=== PATIENT | male | born 2000 | race Caucasian/White ===

== ENCOUNTER 2025-04-19 12:00 | Emergency (ER) | payer MEDICAID, SELFPAY ==
--- NOTE | 2025-04-19 12:06 | ED_ITS ---
HPI - Skin/Abscess/Foreign Bdy General Chief complaint: Skin/Abscess/Foreign Body Stated complaint: painful pimple Time Seen by Provider: 04/19/25 15:03 Source: patient Mode of arrival: ambulatory Limitations: no limitations History of Present Illness ED Provider: DAVID LAYTON PA-C HPI narrative: 24 year old healthy male presents to the ED today for evaluation of pimple to right glute x3-4 days. Admits to popping the area with subsequent drainage. Pain is currently 7/10 however when applying direct pressure to the area, pain increases to 14/10. Trialing Motrin, hot showers, and a pain cream which temporarily relieve his discomfort. Denies fever, chills, N/V. Denies hx DM, IVDU. Related Data Previous Rx's ?Medication ?Instructions ?Recorded cephalexin 500 mg capsule 500 mg PO QID 7 days #28 cap s 04/19/25 doxycycline hyclate 100 mg capsule 100 mg PO BID 7 day s #14 caps 04/19/25 oxycodone 5 mg tablet 5 mg PO Q8H PRN pain (scale score 04/19/25 7-10) 3 days #9 tabs Allergies Allergy/AdvReac Type Severity Reaction Status Date / Time No Known Allergies Allergy Verified 04/19/25 12:22 Review of Systems 2 Review of Systems: Constitutional: No fever, chills, fatigue, night sweats, weight changes ENT/Mouth: No ear pain, hearing loss, nasal congestion, sinus pain, rhinorrhea, sore throat Eyes: No eye pain, swelling, redness, vision changes, discharge Cardio: No chest pain, palpitations, CELESTIN, orthopnea, peripheral edema Pulm: No SOB, cough, sputum, wheezing, dyspnea, hemoptysis GI: No nausea, vomiting, hematemesis, abdominal pain, diarrhea, constipation, hematochezia, melena : No irregular bleeding, dysuria, frequency, urgency, hesitancy, hematuria, flank pain, urinary flow changes, urinary incontinence or retention MSK: No back pain, neck pain, joint pain, myalgias Skin: No lesions, rashes, +abscess Neuro: No weakness, numbness, paresthesias, LOC, dizziness, headache Psych: No anxiety/panic, depression, SI/HI, AH/VH All other systems reviewed and are negative. [facility] Past Medical History Attestation statement: The following information was validated with the patient. Source: old records reviewed and nursing notes reviewed Social History Social History Unable to assess alcohol history related to: Unknown Use of substances other than those prescribed or required for medical reasons: Unknown Advance Directives: No Advance Directives Information Provided: Yes Do you have a plan to hurt others: No Plan Physical Exam 2 Vital Signs: Vital Signs: Last Vital Signs Temp 98.0 F 04/19/25 18:15 Pulse 63 04/19/25 18:15 Resp 18 04/19/25 18:15 BP 117/73 04/19/25 18:15 Pulse Ox 98 04/19/25 18:15 O2 Del Method Room Air 04/19/25 18:15 BMI result Body Mass Index 29.1 vitals stable, afebrile General: Well appearing, in no acute distress. Skin: Warm, dry, intact. No rashes or lesions. Head: Normocephalic, atraumatic. EENT: Hearing is intact b/l. Conjunctiva clear. Sclera is anicteric. PERRLA. EOM intact. Moist mucous membranes.? Neck: Supple without LAD Cardiac: Chest wall symmetric. RRR Lungs: Normal respiratory effort without accessory muscle use. CTA bilaterally. Abdomen: Soft, non-tender, non-distended. No rebound tenderness or guarding. Positive BS x4. Back: No midline spinous or paraspinal tenderness. No step off deformity. Ext: see below Neuro: AOx3. Normal speech. Ambulating with steady gait. Psych: Appropriate mood and affect. Responds appropriately to questions. Back/Spine/Pelvis: Back/spine/pelvis image: 1. right buttock with 5x4cm area of erythema and induration with central pointing and fluctuance, warm. Course Course Course Narrative: This is an RME: Additional HPI, ROS, PE not included below will be deferred to primary provider. RME assessment and note performed by: Delma Deluca PA-C 24 yo M here for 4 days of pimple on R glute. Patient states it drained and scabbed at some point. Reports pain in the area, cannot lay on back. Took Ibuprofen this morning with good effect. PE: area not visualized in triage due to privacy concerns. Plan: labs Reevaluation(s) Reevaluation #1: CBC without leukocytosis. no left shift. h&h stable. chemistry without acute electrolyte abnormality requiring intervention. no renita. liver function wnl. patient pre-medicated with toradol & ativan. I&D performed. see procedure note. patient tolerated well. culture swab sent. packing placed and wound dressed. advised to return to the ED 2-3 days for wound check. keflex + doxy sent to pharmacy. Patient has remained stable throughout ED visit today. Discussed worrisome signs and symptoms and when to return to the ED. All questions answered at this time. Patient is agreeable with disposition and stable for discharge. his girlfriend will be driving him home today. Medications Administered Discontinued Medications Generic Name Dose Route Start Last Admin Trade Name Freq PRN Reason Stop Dose Admin Ketorolac Tromethamine 30 mg 04/19/25 15:40 04/19/25 15:48 Ketorolac Tromethamine 30 Mg/Ml Vial IM 04/19/25 15:41 30 mg ONCE ONE Administration Lidocaine HCl 5 ml 04/19/25 15:35 04/19/25 15:48 Lidocaine Hcl 1 % Mpf 5 Ml Vial INFILTRATI 04/19/25 15:36 5 ml ONCE ONE Administration Lidocaine HCl 5 ml 04/19/25 15:37 04/19/25 15:48 Lidocaine Hcl 1 % Mpf 5 Ml Vial INFILTRATI 04/19/25 15:38 5 ml ONCE ONE Administration Lorazepam 0.5 mg 04/19/25 15:37 04/19/25 15:48 Lorazepam 0.5 Mg Tablet PO 04/19/25 15:38 0.5 mg ONCE ONE Administration Medical Decision Making Medical Decision Making [facility] Narrative: 24 year old healthy male presents to the ED today for evaluation of pimple to right glute x3-4 days. vital signs stable, afebrile. he is well appearing, in nad. on exam, right buttock with 5x4cm area of erythema and induration with central pointing and fluctuance, warm. Concern for cellulitis, abscess, folliculitis. unlikely hemtoma. Basic labs ordered from triage - will review. Plan for pain management + I&D. Differential Diagnosis Differential Diagnoses: The differential diagnosis associated with the presentation includes as above. Admission/Observation not indicated. Lab Data [facility] Lab Attestation statement: I reviewed the patient's lab results. as above. 04/19/25 12:54 04/19/25 12:54 Labs: Lab Results 04/19/25 Range/Units 12:54 WBC 8.4 (4.8-10.8) X10*3/uL RBC 4.82 (4.60-5.80) X10*6/uL Hgb 14.4 (14.0-18.0) g/dl Hct 40.2 L (42.0-52.0) % MCV 83.4 (80.0-98.0) fL MCH 29.9 (27.0-33.0) pg MCHC 35.8 (31.0-36.0) g/dl RDW 11.3 (11.0-16.0) % Plt Count 318 (160-400) X10*3/uL MPV 9.3 L (9.4-12.4) fL Immature Gran % (Auto) 0.2 (0.0-0.4) % Neut % (Auto) 72.9 (45-73) % Lymph % (Auto) 17.8 L (20-40) % Isabela % (Auto) 7.4 (2-11) % Eos % (Auto) 1.2 (0-4) % Baso % (Auto) 0.5 (0-2) % Lymph # (Auto) 1.5 (1.2-4.9) X10*3/uL Isabela # (Auto) 0.6 (0.1-1.2) X10*3/uL Eos # (Auto) 0.1 (0.0-0.4) X10*3/uL Baso # (Auto) 0.0 (0.0-0.2) X10*3/uL Abs Immat Gran (auto) 0.02 (0.00-0.03) X10*3/uL Absolute Neuts (auto) 6.1 (2.0-8.3) x10*3/uL Absolute Nucleated RBC 0.000 (0.0-0.012) X10*3/uL Nucleated RBC % (auto) 0.0 (0.0-0.2) /100WBC Sodium 141 (135-145) mmol/L Potassium 3.7 (3.3-5.1) mmol/L Chloride 107 (96-108) mmol/L Carbon Dioxide 27 (22-29) mmol/L Anion Gap 11 L (12-20) BUN 10 (9-16) mg/dL Creatinine 1.04 (0.5-1.4) mg/dL Estim Creat Clear Calc 99.0 Estimated GFR > 60 Random Glucose 88 (60-115) mg/dL Calcium 9.4 (8.4-10.2) mg/dL Total Bilirubin 0.5 (0.0-1.0) mg/dL AST 22 (5-37) U/L ALT 17 (0-40) U/L Alkaline Phosphatase 86 (39-117) U/L Total Protein 7.5 (6.5-8.0) g/dL Albumin 4.4 (3.5-5.0) g/dL Prescription Management I considered prescription management with: Antibiotic (keflex/doxy) Social Determinants Patient?s care significantly limited by Social Determinants of Health including: Other Social Determinant of Health Procedures Abscess I/D Site: other (glute) Side (if applicable): right Local Anesthetic: lidocaine 1% Amount of anesthesia used (mL): 10 Technique: incised with blade Amount of fluid expressed (mL): 10 Sent for culture/gram staining?: Yes Irrigation: Yes Packing used?: iodoform Critical Care Time Critical Care Time Critical Care Time: No Discharge Plan Discharge Clinical Impression: Abscess, gluteal, right Patient Disposition: Home, Self-Care Instructions: Abscess Follow-up (ED), Abscess Incision and Drainage (DC) Additional Instructions: You were evaluated in the ED today for an abscess to your right buttock. The abscess was incised and drained today. I have placed medicated packing inside to help the area heal. Please keep the area surrounding the abscess clean and dry. You will be given a prescription for antibiotics (Keflex and Doxycycline). Please take the antibiotics as directed for the full course of the medication. The area was marked with skin pen today. If you notice redness extending outside of the pen donahue despite treatment, please return to the ED. On doxycycline, do not take pills immediately before going to bed and swallow pills with plenty of water. Avoid direct sunlight, iron, antacids, and Pepto Bismol. Call your provider if you develop new ringing in your ears, new problems hearing, dizziness, difficulty swallowing, rash, abdominal discomfort, nausea, or diarrhea. On a cephalosporin?antibiotic (keflex) softer bowel movements are to be expected. Call your provider if you move your bowels more than 4 times a day, your bowel movements are almost all liquid, or you get a rash.? I recommend you take 600mg ibuprofen every 6 hours or Tylenol 650mg every 6 hours as needed for pain. If needed, you can alternate these medications so that you take one medication every 3 hours. For example, at noon take ibuprofen, then at 3pm take Tylenol, then at 6pm take ibuprofen. I am also sending a short course of oxycodone to your pharmacy for you to take as needed for pain. I am sending oxycodone, a controlled pain medication, to your pharmacy for you to take for breakthrough pain control. Please use this with caution as opioid pain medications have addictive properties. I want you to the return to the ED in 2-3 days for a wound check to determine if the packing can be removed. Please schedule an appointment with your primary care provider as soon as possible for follow up. You have also been provided with a referral to a general surgeon. You may call them to establish care. They will not call you. Return to the Emergency Department if you experience fevers greater than 100.4F, increase in area of redness or swelling, increasing amount of discharge from the area, increased tenderness around the area, or any other concerning symptoms. Prescriptions: New doxycycline hyclate 100 mg capsule 100 mg PO BID 7 Days Qty: 14 0RF cephalexin 500 mg capsule 500 mg PO QID 7 Days Qty: 28 0RF oxycodone 5 mg tablet 5 mg PO Q8H PRN (Reason: pain (scale score 7-10)) 3 Days Qty: 9 0RF Rx Instructions: Partial Fill upon patient request. Referrals: Jerica Jeffries MD [Primary Care Provider, Medical] Stand Alone Forms: Work/School Release Interventions: ED Discharge Assessment Last Done: 04/19/25 18:15 Discharge Date/Time: 04/19/25 18:15 Print Language: Welsh
[2025-04-19 12:20] VITALS: BP 121/83; PULSE 99; RESP 20; TEMP 37; O2SAT 97; BMI 29.1
[2025-04-19 12:57] LABS: MANUAL DIFF FLAG NO
[2025-04-19 12:59] LABS: Basophils Percent Auto 0.5 % (0-2); Eosinophils Absolute Auto 0.1 X10*3/uL (0.0-0.4); Eosinophils Percent Auto 1.2 % (0-4); Hematocrit 40.2 % (42.0-52.0); Hemoglobin 14.4 g/dl (14.0-18.0); Imm Gran Abs Auto 0.02 X10*3/uL (0.00-0.03); Imm Gran Pct Auto 0.2 % (0.0-0.4); Lymphocytes Absolute Auto 1.5 X10*3/uL (1.2-4.9); Lymphocytes Percent Auto 17.8 % (20-40); Mean Corpuscular HGB Conc 35.8 g/dl (31.0-36.0); Mean Corpuscular Hemoglobin 29.9 pg (27.0-33.0); Mean Corpuscular Volume 83.4 fL (80.0-98.0); Mean Platelet Volume 9.3 fL (9.4-12.4); Monocytes Absolute Auto 0.6 X10*3/uL (0.1-1.2); Monocytes Percent Auto 7.4 % (2-11); Neutrophils Absolute Auto 6.1 x10*3/uL (2.0-8.3); Neutrophils Percent Auto 72.9 % (45-73); Platelet Count 318 X10*3/uL (160-400); Red Blood Count 4.82 X10*6/uL (4.60-5.80); Red Cell Distribution Width 11.3 % (11.0-16.0); White Blood Count 8.4 X10*3/uL (4.8-10.8)
[2025-04-19 13:13] LABS: Alanine Aminotransferase 17 U/L (0-40); Albumin Level 4.4 g/dL (3.5-5.0); Alkaline Phosphatase 86 U/L (39-117); Anion Gap 11 (12-20); Aspartate Amino Transferase 22 U/L (5-37); Bilirubin Total 0.5 mg/dL (0.0-1.0); Blood Urea Nitrogen 10 mg/dL (9-16); Calcium 9.4 mg/dL (8.4-10.2); Carbon Dioxide 27 mmol/L (22-29); Chloride 107 mmol/L (96-108); Estimated Glomerular Filt Rate > 60; Glucose Random 88 mg/dL (60-115); Potassium 3.7 mmol/L (3.3-5.1); Sodium 141 mmol/L (135-145); Total Protein 7.5 g/dL (6.5-8.0)
[2025-04-19 14:27] VITALS: BP 117/73; PULSE 63; RESP 18; TEMP 36.7; O2SAT 98
[2025-04-19] MEDS: Lidocaine HCl 1 % MPF 5 ML VIAL INFILTRATI ×2 (15:48)
[2025-04-19] MEDS: LORazepam 0.5 MG TABLET PO (15:48)
[2025-04-19] MEDS: Ketorolac Tromethamine 30 MG/ML VIAL IM (15:48)
--- OUTSIDE RECORDS SUMMARY | 2025-04-19 17:45 | XMS_ITS | Clinical Summary ---
Author Organization [employer] Address [address] [place] [address] [address] [place] [address] Care Team Providers Care Voice Teacher Name Role Phone Jerica Jeffries MD Primary Care Provider [phone] Allergies No known active allergies Medications Spacer/Aero-Holdi ng Chambers (AeroChamber MV) inhaler Use as instructed with MDI 0 Active albuterol 108 (90 Base) MCG/ACT inhalerIndication s:Moderate persistent asthma without complication Inhale 2 puffs every 4 (four) hours if needed for shortness of breath or wheezing. 18 g 3 5 Active fluticasone (Flovent HFA) 110 MCG/ACT inhalerIndication s:Moderate persistent asthma without complication Inhale 1 puff 2 times daily. 12 g 11 5 Active triamcinolone (Kenalog) 0.1 % cream Apply topically if needed in the morning and at bedtime (pain and swelling). 30 g 2 5 Active fluticasone furoate (Arnuity Ellipta) 100 MCG/ACT inhaler INHALE 1 PUFF BY MOUTH ONCE A DAY. RINSE MOUTH AFTER USE 30 each 1 5 Active Active Problems Problem Noted Date Diagnosed Date Mild intermittent asthma without complication Encounters Date Type Department Care Team Description 04/19/2025 Orders Only GENERIC EXTERNAL DATA DEPARTMENT Provider, Generic External Data 02/21/2025 Refill [facility] [address] [place] [address] Jerica Jeffries MD from Last 3 Months Family History Medical History Relation Name Comments Heart attack Mother Relation Name Status Comments Mother Social History Tobacco Use Types Packs/Day Years Used Date Smoking Tobacco: Never Smokeless Tobacco: Never Tobacco Cessation:Counseling Given: No Alcohol Answer Date Recorded Q1: How often do you have a drink containing alc ohol? 2 12/26/2024 Q2: How many drinks containi ng alcohol do you have on a typical day when you are drinking? 0 12/26/2024 Q3: How often do you have six or more drinks on one occasion? 2 12/26/2024 Depression Answer Date Recorded Patient Health Questionnaire-9 Score 3 12/26/2024 Patient Health Questionnaire-9 Score 3 12/26/2024 Last PHQ-9: Questionnaire Data Not on file 0 12/26/2024 Housing Stability Answer Date Recorded What is your housing situation today? I do not have housing (Staying with others, in a hotel, in a care home, living outside on the street, on a beach, in a car, or in a park 12/09/[address] you li ve. Do you have problems with any of the following? None of the above 12/09/2024 Food Insecurity Answer Date Recorded Within the past 12 months, y ou worried that your food would run out before you got money to buy more: Never True 12/09/2024 Within the past 12 months,th e food you bought just didn't last and you didn't have enough money to get more: Never True Transportation Answer Date Recorded In the past 12 months, has l ack of transportation kept you from medical appts, meetings, work or from getting things needed for daily living? No 12/09/2024 Utilities Answer Date Recorded In the past 12 months, has t he electric, gas, oil or water company threatened to shut off services in your home? No 12/09/2024 Depression Answer Date Recorded Patient Health Questionnaire-2 Score 1 12/26/2024 Internet Access Answer Date Recorded Internet Access Q1 Yes 12/09/2024 Internet Access Q2 Not on file 12/09/2024 Sex and Gender Information Value Date Recorded Sex Assigned at Male 04/15/2024 11:37 AM EDT Legal Sex Male 11:34 AM EDT Gender Identity Male 04/15/2024 11:37 AM EDT Sexual Orientation Don't know 12/26/2024 10 :42 AM EST Last Filed Vital Signs Vital Sign Reading Time Taken Comments Blood Pressure 136/82 12/26/2024 2:05 PM EST Pulse 74 12/26/2024 2:05 PM EST Temperature 36.6 C (97.9 F) 12/26/2024 2:05 PM EST Respiratory Rate 20 12/26/2024 2:05 PM EST Oxygen Saturation 99% 12/26/2024 2:05 PM EST Inhaled Oxygen Concentration - - Weight 73.5 kg (162 lb) 12/26/2024 2:05 PM EST Height 159.7 cm (5' 2.89 ) 12/26/2024 2:05 PM ES T Body Mass Index 28.79 12/26/2024 2:05 PM EST Plan of Treatment Health Maintenance Due Date Last Done Comments HIV Screening 2000 Disability Screening 2000 Family Planning (PISQ) 2015 Hepatitis C Screening 2018 Pneumococcal Vaccine: Pediatrics (0 to 5 Years) and At-Risk Patients (6 to 49) Years (1 of 2 - PCV) 2019 03/16/2002, 07/05/2001, 04/14/2001, Additional history exists DTaP/Tdap/Td Vaccines (7 - Td or Tdap) 12/10/2021 12/10/2011, 05/13/2006, 03/16/2002, Additional history exists COVID-19 Vaccine ( - season) 2024 Influenza Vaccine (Season Ended) 2025 08/12/2018, 08/19/2016, 08/21/2015, Additional history exists Alcohol/Substance Use Screening 12/26/2025 12/26/2024 Depression Screening 12/26/2025 12/26/2024, 12/27/19 SDOH Screening 12/26/2025 12/26/2024 Tobacco Screening 12/26/2025 12/26/2024 Zoster Vaccines (1 of 2) 2050 RSV Patients and Patients Aged 60 years or older (1 - 1-dose 75+ series) 2075 Hepatitis B Vaccines Completed 09/20/2001, 01/25/2001, 2000 HIB Vaccines Completed 03/16/2002, 06/26, 04/24/2001, Additional history exists IPV Vaccines Completed 05/13/2006, 08/27, 04/24/2001, Additional history exists HPV Vaccines Completed 08/21/2015, 11/27, 12/15/2013 Meningococcal Vaccine Completed 03/25/2018, 012 Hepatitis A Vaccines Completed 02/03/2019, 03/25/20 18 Meningococcal B Vaccine Aged Out No l onger eligible based on patient's age to complete this topic RSV under 20 months Aged Out No longe r eligible based on patient's age to complete this topic Rotavirus Vaccines Aged Out No longer eligible based on patient's age to complete this topic Procedures Procedure Name Priority Date/Time Associated Diagnosis Comments COMPREHENSIVE METABOLIC PANEL Routine 04/19/2025 12:54 PM EDT CBC WITH AUTO DIFFERENTIAL Routine 04/19/2025 12:54 PM EDT from Last 3 Months Results * (ABNORMAL) CBC auto differential (04/19/2025 12:54 PM EDT) White Blood Count 8.4 4.8 - 10.8 X10*3/uL [facility] Red Blood Count 4.82 4.60 - 5.80 X10*6/uL [facility] Hemoglobin 14.4 14.0 - 18.0 g/dl [facility] Hematocrit 40.2(L) 42.0 - 52.0 % [facility] Mean Corpuscular Volume 83.4 80.0 - 98.0 fL [facility] Mean Corpuscular Hemoglobin 29.9 27.0 - 33.0 pg [facility] Mean Corpuscular HGB Conc 35.8 31.0 - 36.0 g/dl [facility] Red Cell Distribution Width 11.3 11.0 - 16.0 % [facility] Platelet Count 318 160 - 400 X10*3/uL [facility] Mean Platelet Volume 9.3(L) 9.4 - 12.4 fL [facility] Neutrophils Percent Auto 72.9 45 - 73 % [facility] Imm Gran Pct Auto 0.2 0.0 - 0.4 % [facility] Lymphocytes Percent Auto 17.8(L) 20 - 40 % [facility] Monocytes Percent Auto 7.4 2 - 11 % [facility] Eosinophils Percent Auto 1.2 0 - 4 % [facility] Basophils Percent Auto 0.5 0 - 2 % [facility] NRBC Pct Auto 0.0 0.0 - 0.2 /100WBC [facility] Neutrophils Absolute Auto 6.1 2.0 - 8.3 x10*3/uL [facility] Imm Gran Abs Auto 0.02 0.00 - 0.03 X10*3/uL [facility] Lymphocytes Absolute Auto 1.5 1.2 - 4.9 X10*3/uL [facility] Monocytes Absolute Auto 0.6 0.1 - 1.2 X10*3/uL [facility] Eosinophils Absolute Auto 0.1 0.0 - 0.4 X10*3/uL [facility] Basophils Absolute Auto 0.0 0.0 - 0.2 X10*3/uL [facility] NRBC Abs Auto 0.000 0.0 - 0.012 X10*3/uL [facility] 04/19/2025 12:5 4 PM EDT 04/19/2025 12:56 PM EDT us Generic External Data Provider LAB BLOOD ORDERAB LES Final Result [facility] [address] [place] [phone] * (ABNORMAL) Comprehensive Metabolic Panel (04/19/2025 12:54 PM EDT) Sodium 141 135 - 145 mmol/L [facility] Potassium 3.7 3.3 - 5.1 mmol/L [facility] Chloride 107 96 - 108 mmol/L [facility] Carbon Dioxide 27 22 - 29 mmol/L [facility] Anion Gap 11(L) 12 - 20 [facility] Urea Nitrogen (BUN) 10 9 - 16 mg/dL [facility] Creatinine, Serum 1.04 0.5 - 1.4 mg/dL [facility] Creatinine Clr Calc Pharmacy 99.0 [facility] Comment:eGFR (calculated fro m the MDRD study equation) and eCrCl(calculated from the Cockcroft-Gault equation) are based ondifferent parameters and may not yield comparable results.If eCrCl result is absurd, please check patient'sheight/weight. Estimated Glomerular Filt Rate >60 [facility] Comment:Chronic Kidney Disea se: Estimated GFR < 60 mL/min/1.46w4Cmmgzn Kidney Disease: Estimated GFR < 15 mL/min/1.73m2 Glucose 88 60 - 115 mg/dL [facility] Calcium 9.4 8.4 - 10.2 mg/dL [facility] Bilirubin, Total 0.5 0.0 - 1.0 mg/dL [facility] Aspartate Amino Transferase 22 5 - 37 U/L [facility] Alanine Aminotransferase 17 0 - 40 U/L [facility] Total Protein 7.5 6.5 - 8.0 g/dL [facility] Albumin Level 4.4 3.5 - 5.0 g/dL [facility] Alkaline Phosphatase 86 39 - 117 U/L [facility] 04/19/2025 12:5 4 PM EDT 04/19/2025 12:56 PM EDT us Generic External Data Provider LAB BLOOD ORDERAB LES Final Result [facility] [address] [place] [address] [phone] from Last 3 Months Insurance [facility] [employer] MEDICARE Care Teams Voice Teacher Relationship Specialty Start Date End Date Jerica Jeffries MD [address] [place] [id number] PCP - General Internal Medicine 12/26/24
[2025-04-19 18:15] VITALS: BP 117/73; PULSE 63; RESP 18; TEMP 36.7; O2SAT 98
== END 2025-04-19 18:15 | disposition home or self-care (01) ==
PROVIDERS: Emergency Provider Emergency Medicine; PCP Internal Medicine
DX: L02.31 Cutaneous abscess of buttock (principal); Z79.899 Other long term (current) drug therapy
CPT/HCPCS: 10060; 36415; 80053; 85025; 87070; 87077; 87186; 87205; 96372; 99284; J1885; J2003

== ENCOUNTER 2025-04-21 14:20 | Emergency (ER) | payer MEDICAID, SELFPAY ==
[2025-04-21 14:22] VITALS: BP 119/80; PULSE 97; RESP 16; TEMP 36.8; O2SAT 100; BMI 29.1
--- NOTE | 2025-04-21 14:24 | ED.SKABFB ---
HPI - Skin/Abscess/Foreign Bdy General Chief complaint: Wound/Laceration Stated complaint: Recent Visit- Wound Check Up Time Seen by Provider: 04/21/25 14:54 Source: patient, RN notes reviewed and old records reviewed Mode of arrival: ambulatory Limitations: no limitations History of Present Illness ED Provider: Rosaline MANDEL narrative: 24-year-old male presents for evaluation of a wound rechecked. He was seen here 2 days ago for an abscess in his right buttocks. He had an incision and drainage performed pain He has been take in his doxycycline and cephalexin as prescribed His pain has resolved, he has not had any fevers or chills. He does have gauze wick in place Related Data Previous Rx's ?Medication ?Instructions ?Recorded cephalexin 500 mg capsule 500 mg PO QID 7 days #28 caps 04/19/25 doxycycline hyclate 100 mg capsule 100 mg PO BID 7 days #14 caps 04/19/25 oxycodone 5 mg tablet 5 mg PO Q8H PRN pain (scale score 04/19/25 7-10) 3 days #9 tabs Allergies Allergy/AdvReac Type Severity Reaction Status Date / Time No Known Allergies Allergy Verified 04/21/25 14:23 [facility] Social History Social History Unable to assess alcohol history related to: Unknown Smoked in Last 30 Days: No Substance Use Type: Marijuana Substance Use Frequency Other:: 1-3 blunts/day Advance Directives: No Advance Directives Information Provided: Yes Do you have a plan to hurt others: No Plan Physical Exam Vital Signs: Vital Signs: Last Vital Signs Temp 98.2 F 04/21/25 15:21 Pulse 97 04/21/25 15:21 Resp 16 04/21/25 15:21 BP 119/80 04/21/25 15:21 Pulse Ox 100 04/21/25 15:21 O2 Del Method Room Air 04/21/25 15:21 BMI result Body Mass Index 29.1 Const: General: healthy appearing, comfortable, no acute distress, alert and awake Nutritional Appearance: well nourished Orientation/consciousness: patient oriented x3 HEENT: Head: Yes normocephalic and Yes atraumatic Eyes: Eyelids: Yes eyelids normal Conjunctivae: conjunctivae normal Sclerae: sclerae normal Corneas: corneas normal Pupils: Equal, round and reactive pupils present EOM: EOMs intact bilaterally Neck: Neck: Yes full ROM Resp: Effort & Inspection: normal respiratory effort, able to speak in complete sentences and not labored Skin: Other: There is a healing abscess in the right buttocks region. There is some surrounding induration, there was no residual erythema within the marked area from I and D 2 days ago. The gauze wick was removed. The patient has some discomfort while this was removed but there was no tenderness on exam. There is some minimal discharge from the wound General skin exam: elasticity normal Neuro: General: patient oriented x3 Cranial nerves: Yes Equal, round and reactive pupils present and Yes Bilaterally intact EOM present Cognition (Neuro): normal cognition Course Course Course Narrative: 04/21/25 1424 GANESH Corea This is a Rapid Medical Examination (RME) performed by Jason Mchugh PA-C in triage. Full HPI, ROS, assessment and treatment plan per primary provider in the Main ED. Hx: 24 yo M here for wound eval. had I&D 2 days ago w/ packing placed secondary to right gluteal abscess. here for re-eval/ wound check. reports area is draining. reports compliance with abx. PE/vitals: area not visualized in triage. Plan: Further eval and back. Medical Decision Making Medical Decision Making [facility] Narrative: 24-year-old male presents for evaluation of a wound rechecked. He had an I and D performed 2 days ago has been compliant with antibiotics, his pain has resolved, he has not had any fevers or chills. This is on exam he still has some drainage from the area with induration but no tenderness. I discussed possible repacking and the patient declines at this time which I do feel is appropriate as this seems to be improving well. Differential Diagnosis Differential Diagnoses: The differential diagnosis associated with the presentation includes Abscess Wound check Cellulitis Packing removal Discharge Plan Discharge Clinical Impression: Encounter for wound re-check Patient Disposition: Home, Self-Care Instructions: Abscess Follow-up (ED) Additional Instructions: Your abscess appears to be healing well. Continue warm compresses and the antibiotics as prescribed. Return for new or worsening symptoms, especially develop fevers Prescriptions: No Action doxycycline hyclate 100 mg capsule 100 mg PO BID 7 Days Qty: 14 0RF cephalexin 500 mg capsule 500 mg PO QID 7 Days Qty: 28 0RF oxycodone 5 mg tablet 5 mg PO Q8H PRN (Reason: pain (scale score 7-10)) 3 Days Qty: 9 0RF Rx Instructions: Partial Fill upon patient request. Interventions: ED Discharge Assessment Last Done: 04/21/25 15:21 Discharge Date/Time: 04/21/25 15:30 Print Language: Eritrean
[2025-04-21 14:35] VITALS: BP 119/80; PULSE 97; RESP 16; TEMP 36.8; O2SAT 100
--- NOTE | 2025-04-21 14:37 | PC.NURSE ---
Pt here for wound check for right buttock abscess. 1/2 inch diameter packed wound has mod amount bloody drainage on dressing- changed at this time to DSD. Area around wound is smaller than line skin marking from previous assessment. wound packed. Pt denies pain, fever or other symptoms.
--- OUTSIDE RECORDS SUMMARY | 2025-04-21 15:05 | XMS_ITS | Clinical Summary ---
Author Organization [employer] Address [address] [place] [address] [address] [place] [address] Care Team Providers Care Quality Assurance Analyst Name Role Phone Jerica Jeffries MD Primary Care Provider [phone] Allergies No known active allergies Medications Spacer/Aero-Holdi [...] DEPARTMENT Provider, Generic External Data 02/21/2025 Refill [facility] [address] [place] [address] Jerica Jeffries MD from Last 3 Months [...] with others, in a hotel, in a intermediate, living outside on the street, on a [...] Procedure Name Priority Date/Time Associated Diagnosis Comments GRAM STAIN Routine 04/19/2025 6:09 PM EDT COMPREHENSIVE METABOLIC PANEL Routine 04/19/2025 12:54 PM EDT CBC WITH AUTO DIFFERENTIAL Routine 04/19/2025 12:54 PM EDT from Last 3 Months Results * Gram stain (04/19/2025 6:09 PM EDT) 04/19/2025 6:09 PM EDT 04/19/2025 6:14 PM EDT Comment:Diego Anderson [facility] - 04/20/2025 8:38 AM EDT Gram stain results: 2+ polys 4+ red blood cells 2+ Gram-positive cocci Routine Culture Culture in progress. Specimen Source: Diego us Generic External Data Provider LAB MICROBIOLOGY - GENERAL ORDERABLES Final Result [facility] [address] [place] [phone] * (ABNORMAL) CBC auto differential (04/19/2025 12:54 PM EDT) White Blood Count 8.4 4.8 - 10.8 X10*3/uL [facility] Red Blood Count 4.82 4.60 - 5.80 X10*6/uL [facility] Hemoglobin 14.4 14.0 - 18.0 g/dl [facility] Hematocrit 40.2(L) 42.0 - 52.0 % [facility] Mean Corpuscular Volume 83.4 80.0 - 98.0 fL [facility] Mean Corpuscular Hemoglobin 29.9 27.0 - 33.0 pg [facility] Mean Corpuscular HGB Conc 35.8 31.0 - 36.0 g/dl [facility] Red Cell Distribution Width 11.3 11.0 - 16.0 % [facility] Platelet Count 318 160 - 400 X10*3/uL [facility] Mean Platelet Volume 9.3(L) 9.4 - 12.4 fL [facility] Neutrophils Percent Auto 72.9 45 - 73 % [facility] Imm Gran Pct Auto 0.2 0.0 - 0.4 % [facility] Lymphocytes Percent Auto 17.8(L) 20 - 40 % [facility] Monocytes Percent Auto 7.4 2 - 11 % [facility] Eosinophils Percent Auto 1.2 0 - 4 % [facility] Basophils Percent Auto 0.5 0 - 2 % [facility] NRBC Pct Auto 0.0 0.0 - 0.2 /100WBC [facility] Neutrophils Absolute Auto 6.1 2.0 - 8.3 x10*3/uL [facility] Imm Gran Abs Auto 0.02 0.00 - 0.03 X10*3/uL [facility] Lymphocytes Absolute Auto 1.5 1.2 - 4.9 X10*3/uL [facility] Monocytes Absolute Auto 0.6 0.1 - 1.2 X10*3/uL [facility] Eosinophils Absolute Auto 0.1 0.0 - 0.4 X10*3/uL [facility] Basophils Absolute Auto 0.0 0.0 - 0.2 X10*3/uL [facility] NRBC Abs Auto 0.000 0.0 - 0.012 X10*3/uL [facility] 04/19/2025 12:5 4 PM EDT 04/19/2025 12:56 PM EDT us Generic External Data Provider LAB BLOOD ORDERAB LES Final Result [facility] [address] [place] [phone] * (ABNORMAL) Comprehensive Metabolic Panel (04/19/2025 12:54 PM EDT) Sodium 141 135 - 145 mmol/L [facility] Potassium 3.7 3.3 - 5.1 mmol/L [facility] Chloride 107 96 - 108 mmol/L [facility] Carbon Dioxide 27 22 - 29 mmol/L [facility] Anion Gap 11(L) 12 - 20 [facility] Urea Nitrogen (BUN) 10 9 - 16 mg/dL [facility] Creatinine, Serum 1.04 0.5 - 1.4 mg/dL [facility] Creatinine Clr Calc Pharmacy 99.0 [facility] Comment:eGFR (calculated fro m the MDRD study equation) and eCrCl(calculated from the Cockcroft-Gault equation) are based ondifferent parameters and may not yield comparable results.If eCrCl result is absurd, please check patient'sheight/weight. Estimated Glomerular Filt Rate >60 [facility] Comment:Chronic Kidney Disea se: Estimated GFR < 60 mL/min/[id number] Kidney Disease: Estimated GFR < 15 mL/min/1.73m2 Glucose 88 60 - 115 mg/dL [facility] Calcium 9.4 8.4 - 10.2 mg/dL [facility] Bilirubin, Total 0.5 0.0 - 1.0 mg/dL [facility] Aspartate Amino Transferase 22 5 - 37 U/L [facility] Alanine Aminotransferase 17 0 - 40 U/L [facility] Total Protein 7.5 6.5 - 8.0 g/dL [facility] Albumin Level 4.4 3.5 - 5.0 g/dL [facility] Alkaline Phosphatase 86 39 - 117 U/L [facility] 04/19/2025 12:5 4 PM EDT 04/19/2025 12:56 PM EDT us Generic External Data Provider LAB BLOOD ORDERAB LES Final Result [facility] [address] [place] [phone] from Last 3 Months Insurance [facility] [place] [id number] Care Teams Quality Assurance Analyst Relationship Specialty Start Date End Date Jerica Jeffries MD [address] [place] [phone] PCP - General Internal Medicine 12/26/24
[2025-04-21 15:21] VITALS: BP 119/80; PULSE 97; RESP 16; TEMP 36.8; O2SAT 100
== END 2025-04-21 15:30 | disposition home or self-care (01) ==
PROVIDERS: Emergency Provider Emergency Medicine; PCP Internal Medicine
DX: Z48.03 Encounter for change or removal of drains (principal); L02.31 Cutaneous abscess of buttock
CPT/HCPCS: 99282; 99284

== ENCOUNTER 2025-05-07 18:39 | Emergency (ER) | payer MEDICARE, MEDICAID, SELFPAY ==
--- NOTE | ~2025-05-07 | CT_ITS ---
CLINICAL HISTORY: perirectal abscess CT abdomen and pelvis with contrast Comparison: None provided Findings: No consolidation of the imaged lung bases. No liver mass by CT. Gallbladder is unremarkable for CT. The adrenal glands are normal. The spleen is nonenlarged. Pancreas unremarkable. No hydronephrosis. Multiple cystic lesions of the kidneys too small to characterize by CT. Small mesenteric lymph nodes are nonspecific and likely reactive. Fluid in the small bowel loops can be seen with enteritis. No small bowel obstruction. Imaged appendix is retrocecal and within normal limits (image 54 of series 3). Wall thickening of the large intestine is nonspecific and can be seen with mild colitis. Underdistention also considered, with otherwise moderate to severe stool burden. The prostate gland measures 3.7 cm transverse. Left dorsal perirectal and superficial fluid collection measures 2.2 x 3.9 x 3.5 cm as can be seen with reported of the abscess. No interim muscular accentuated are deemed accentuated in the pelvis. No drainable abscess within the peritoneum. Transitional vertebral anatomy. Sacralization of the L5 for the purposes of this dictation only. Mild cam shaft deformity of the proximal left femur. Superficial metal artifacts. IMPRESSION: Left dorsal perirectal abscess measures 3.9 cm. No deep accentuated into pelvis. This document has been electronically signed by: Stephane Petersen MD on 05/07/2025 23:01:28
[2025-05-07 18:47] VITALS: BP 110/62; PULSE 95; RESP 16; TEMP 36.8; O2SAT 97; BMI 28.9
--- NOTE | 2025-05-07 18:50 | ED.GENADULT ---
HPI - General Adult General Chief complaint: Wound/Laceration Stated complaint: left pain cant sit, no sleeping 2 days Time Seen by Provider: 05/07/25 20:43 Source: patient Limitations: no limitations History of Present Illness ED Provider: Heavenly Brar PA-C HPI narrative: 24-year-old male who is otherwise healthy presents with left buttock pain x4 days. Patient states he started to develop discomfort, it has since progressed. Patient is able to palpate a very tender swelling along the inner left buttock crease. No bleeding or active purulent drainage from the rectum. No fevers. Related Data Previous Rx's ?Medication ?Instructions ?Recorded cephalexin 500 mg capsule 500 mg PO QID 7 days #28 caps 04/19/25 doxycycline hyclate 100 mg capsule 100 mg PO BID 7 days #14 caps 04/19/25 oxycodone 5 mg tablet 5 mg PO Q8H PRN pain (scale score 04/19/25 7-10) 3 days #9 tabs doxycycline hyclate 100 mg tablet 100 mg PO BID #20 tabs 05/08/25 metronidazole 500 mg tablet 500 mg PO TID #30 tabs 05/08/25 Allergies Allergy/AdvReac Type Severity Reaction Status Date / Time No Known Allergies Allergy Verified 05/07/25 18:50 Review of Systems Review of Systems: Yes all other systems are reviewed and are negative Constitutional: Constitutional: Denies fatigue and Denies fever(s) Gastrointestinal: Gastrointestinal: Denies abdominal pain, Denies hematochezia, Denies nausea and Denies vomiting Endocrine: Endocrine: Denies fatigue PMFSH Past Medical History Attestation statement: The following information was validated with the patient. Social History Social History Unable to assess alcohol history related to: Unknown Substance Use Type: Marijuana Advance Directives: No Advance Directives Information Provided: No Do you have a plan to hurt others: No Plan Physical Exam ED Vital Signs: Vital Signs - 24 hr 05/07/25 18:47 05/07/25 19:42 05/07/25 21:40 Temperature 98.3 F 98.1 F Pulse Rate 95 85 Respiratory Rate 16 16 18 Blood Pressure 110/62 136/81 Pulse Oximetry 97 98 Oxygen Delivery Method Room Air Room Air 05/07/25 21:42 05/08/25 00:14 05/08/25 01:10 Temperature 98.6 F 98.5 F Pulse Rate 72 83 70 Respiratory Rate 16 20 18 Blood Pressure 97/37 L 122/62 105/55 L Pulse Oximetry 99 98 98 Oxygen Delivery Method Room Air Room Air Room Air BMI result Body Mass Index 28.9 Const Other: Alert Orientation/consciousness: patient oriented x3 Resp Effort & Inspection: normal respiratory effort Cardio Other: Normal peripheral perfusion GI Other: Tender erythematous indurated swelling noted along in her left buttock crease, no area of fluctuance Skin Other: Warm dry no rash Neuro General: patient oriented x3, gait normal, no focal motor deficits and CN's II-XI intact bilaterally Psych Other: Cooperative Course Course Course Narrative: Medical screening exam performed. Please refer to detailed history, exam, evaluation, and management by primary provider. 24-year-old male, left buttock pain, concern for abscess. Recent I and D to the right buttock. No trauma. We will check baseline labs. Consultations Consultation #1: per Dr. Guerra....... I spoke with him over the phone, he states he has at home and he can not look at the CT scan, I was explaining to Dr. Guerra that the abscess was deep, at 4 cm, that I did not feel it was appropriate for me to I and D at bedside. He is asking that I have lidocaine ready at the bedside, he will come in and perform this procedure. Time: 23:34 Consultation #2: Dr. Guerra called back to the ED shortly after he had spoken with me, he asked to talk to Dr. Chambers. He was requesting that Dr. Chambers assess the patient, and perform the I and D himself. Dr. Chambers is now involved, and he will be performing the I and D at bedside. While Dr. Chambers was in the room, Dr. Guerra arrived........ To note Dr. Sheriff was listed as my attending on My Chart, I had begun to discuss with her that I felt it was out of my scope to perform this I and D at bedside, given the depth and extent of the abscess, and its location. Time: 23:41 Medications Administered Generic Name Dose Route Start Last Admin Trade Name Freq PRN Reason Stop Dose Admin Sodium Chloride 1,000 mls @ 999 mls/hr 05/08/25 01:15 05/08/25 01:22 Ns IV 05/08/25 02:15 999 mls/hr .Q1H1M MAYA Administration Discontinued Medications Generic Name Dose Route Start Last Admin Trade Name Diamond PRN Reason Stop Dose Admin Acetaminophen 650 mg 05/07/25 20:31 05/07/25 20:36 Acetaminophen 325 Mg Tablet PO 05/07/25 20:32 650 mg ONCE ONE Administration Sodium Chloride 1,000 mls @ 999 mls/hr 05/07/25 21:30 05/07/25 22:48 Ns IV 05/07/25 22:30 Infused .Q1H1M MAYA Infusion Piperacillin Sod/Tazobactam 50 mls @ 100 mls/hr 05/08/25 00:09 05/08/25 01:01 Sod 3.375 gm/ Sodium Chloride IV 05/08/25 00:38 Infused ONCE ONE Infusion Lidocaine/Epinephrine 10 ml 05/07/25 23:39 05/08/25 00:09 Lidocaine Hcl 1%/Epi 1:100,000 10 Ml Vial INFILTRATI 05/07/25 23:40 10 ml ONCE ONE Administration Lidocaine/Epinephrine 10 ml 05/07/25 23:39 05/08/25 00:09 Lidocaine Hcl 1%/Epi 1:100,000 10 Ml Vial INFILTRATI 05/07/25 23:40 10 ml ONCE ONE Administration Morphine Sulfate 10 mg 05/07/25 21:25 05/07/25 21:40 Morphine Sulfate 10 Mg/Ml Cartridge IVPUSH 05/07/25 21:26 10 mg ONCE ONE Administration Protocol Ondansetron HCl 4 mg 05/07/25 21:25 05/07/25 21:40 Ondansetron Hcl 4 Mg/2 Ml Vial IVPUSH 05/07/25 21:26 4 mg ONCE ONE Administration Procedures Abscess I/D Site: radha-rectal (Pilonidal abscess) Local Anesthetic: lidocaine 1% and with epi Amount of anesthesia used (mL): 10 Technique: incised with blade Amount of fluid expressed (mL): 30 Sent for culture/gram staining?: No Irrigation: No Packing used?: iodoform Complications: other (None) Medical Decision Making Medical Decision Making MDM Narrative: 24-year-old male who is otherwise healthy presents with left buttock pain x4 days. Patient states he started to develop discomfort, it has since progressed. Patient is able to palpate a very tender swelling along the inner left buttock crease. No bleeding or active purulent drainage from the rectum. No fevers. No chronic issues History: Per patient I have considered the following differential diagnoses: Cellulitis, purulent cellulitis, pilonidal cyst/abscess, perirectal abscess Plan: Given location I am concerned for large abscess that may be tracking inward. We will be obtaining a CT scan. Adding on blood cultures and a lactic, I foresee him requiring IV antibiotics. We will be giving morphine for his pain. Labs: Leukocytosis of 14.9 with left shift, not anemic, no electrolyte abnormalities noted, lactic acid 1.2 CT abdomen and pelvis: Findings: No consolidation of the imaged lung bases. No liver mass by CT. Gallbladder is unremarkable for CT. The adrenal glands are normal. The spleen is nonenlarged. Pancreas unremarkable. No hydronephrosis. Multiple cystic lesions of the kidneys too small to characterize by CT. Small mesenteric lymph nodes are nonspecific and likely reactive. Fluid in the small bowel loops can be seen with enteritis. No small bowel obstruction. Imaged appendix is retrocecal and within normal limits (image 54 of series 3). Wall thickening of the large intestine is nonspecific and can be seen with mild colitis. Underdistention also considered, with otherwise moderate to severe stool burden. The prostate gland measures 3.7 cm transverse. Left dorsal perirectal and superficial fluid collection measures 2.2 x 3.9 x 3.5 cm as can be seen with reported of the abscess. No interim muscular accentuated are deemed accentuated in the pelvis. No drainable abscess within the peritoneum. Transitional vertebral anatomy. Sacralization of the L5 for the purposes of this dictation only. Mild cam shaft deformity of the proximal left femur. Superficial metal artifacts. IMPRESSION: Left dorsal perirectal abscess measures 3.9 cm. No deep accentuated into pelvis. 23:55 case seen as request by surgeon Dr. Guerra, previous supervisor fireworks assembly doctor was Dr. Hyatt. Patient with history of recurrent pilonidal abscess comes here with swelling and pain in the gluteal cleft for last [address] scan done which showed abscess clinically patient has fluctuant abscess of the gluteal cleft. I and D was done and good amount of foul-smelling pus was drained and packed by iodoform gauze. Lab Data 05/07/25 18:56 05/07/25 18:56 Labs: Lab Results 05/07/25 05/07/25 Range/Units 18:56 21:38 WBC 14.9 H (4.8-10.8) X10*3/uL RBC 4.80 (4.60-5.80) X10*6/uL Hgb 14.4 (14.0-18.0) g/dl Hct 40.1 L (42.0-52.0) % MCV 83.5 (80.0-98.0) fL MCH 30.0 (27.0-33.0) pg MCHC 35.9 (31.0-36.0) g/dl RDW 11.6 (11.0-16.0) % Plt Count 333 (160-400) X10*3/uL MPV 9.5 (9.4-12.4) fL Immature Gran % (Auto) 0.3 (0.0-0.4) % Neut % (Auto) 86.7 H (45-73) % Lymph % (Auto) 6.4 L (20-40) % [place] % (Auto) 6.3 (2-11) % Eos % (Auto) 0.1 (0-4) % Baso % (Auto) 0.2 (0-2) % Lymph # (Auto) 1.0 L (1.2-4.9) X10*3/uL [place] # (Auto) 0.9 (0.1-1.2) X10*3/uL Eos # (Auto) 0.0 (0.0-0.4) X10*3/uL Baso # (Auto) 0.0 (0.0-0.2) X10*3/uL Abs Immat Gran (auto) 0.04 H (0.00-0.03) X10*3/uL Absolute Neuts (auto) 12.9 H (2.0-8.3) x10*3/uL Absolute Nucleated RBC 0.000 (0.0-0.012) X10*3/uL Nucleated RBC % (auto) 0.0 (0.0-0.2) /100WBC Sodium 139 (135-145) mmol/L Potassium 3.6 (3.3-5.1) mmol/L Chloride 106 (96-108) mmol/L Carbon Dioxide 21 L (22-29) mmol/L Anion Gap 16 (12-20) BUN 8 L (9-16) mg/dL Creatinine 1.12 (0.5-1.4) mg/dL Estim Creat Clear Calc 91.6 Estimated GFR > 60 Random Glucose 125 H (60-115) mg/dL Lactic Acid 1.2 (0.5-2.0) mmol/L Calcium 9.7 (8.4-10.2) mg/dL Discharge Plan Discharge Clinical Impression: Pilonidal abscess of cleft Instructions: Pilonidal Cyst (ED), Abscess (ED) Additional Instructions: Local care as advised Packing removal in 2 days Take antibiotic as prescribed Prescriptions: New doxycycline hyclate 100 mg tablet 100 mg PO BID Qty: 20 0RF metronidazole 500 mg tablet 500 mg PO TID Qty: 30 0RF No Action doxycycline hyclate 100 mg capsule 100 mg PO BID 7 Days Qty: 14 0RF cephalexin 500 mg capsule 500 mg PO QID 7 Days Qty: 28 0RF oxycodone 5 mg tablet 5 mg PO Q8H PRN (Reason: pain (scale score 7-10)) 3 Days Qty: 9 0RF Rx Instructions: Partial Fill upon patient request. Stand Alone Forms: Work/School Release Print Language: Telugu
[2025-05-07 19:02] LABS: MANUAL DIFF FLAG NO
[2025-05-07 19:04] LABS: Hematocrit 40.1 % (42.0-52.0); Hemoglobin 14.4 g/dl (14.0-18.0); Imm Gran Abs Auto 0.04 X10*3/uL (0.00-0.03); Imm Gran Pct Auto 0.3 % (0.0-0.4); Lymphocytes Absolute Auto 1.0 X10*3/uL (1.2-4.9); Mean Corpuscular HGB Conc 35.9 g/dl (31.0-36.0); Mean Corpuscular Hemoglobin 30.0 pg (27.0-33.0); Mean Corpuscular Volume 83.5 fL (80.0-98.0); NRBC Abs Auto 0.000 X10*3/uL (0.0-0.012); NRBC Pct Auto 0.0 /100WBC (0.0-0.2); Platelet Count 333 X10*3/uL (160-400); Red Blood Count 4.80 X10*6/uL (4.60-5.80); White Blood Count 14.9 X10*3/uL (4.8-10.8)
[2025-05-07 19:18] LABS: Anion Gap 16 (12-20); Blood Urea Nitrogen 8 mg/dL (9-16); Calcium 9.7 mg/dL (8.4-10.2); Carbon Dioxide 21 mmol/L (22-29); Chloride 106 mmol/L (96-108); Creatinine Clr Calc Pharmacy 91.6; Estimated Glomerular Filt Rate > 60; Potassium 3.6 mmol/L (3.3-5.1); Sodium 139 mmol/L (135-145)
[2025-05-07 19:42] VITALS: BP 136/81; PULSE 85; RESP 16; TEMP 36.7; O2SAT 98
[2025-05-07 21:40] VITALS: RESP 18
[2025-05-07 21:42] VITALS: BP 97/37; PULSE 72; RESP 16; TEMP 37; O2SAT 99
--- NOTE | 2025-05-07 21:47 | PC.NURSE ---
This Rn placed IV line, medicated per DEC. This RN double checked morphine dose with PA, pt vitals stable at this time, pt to remain on monitor
[2025-05-08] MEDS: Lidocaine HCl 1%/Epi 1:100,000 10 ML VIAL INFILTRATI ×2 (00:09)
[2025-05-08 00:14] VITALS: BP 122/62; PULSE 83; RESP 20; TEMP 36.9; O2SAT 98
[2025-05-08 01:10] VITALS: BP 105/55; PULSE 70; RESP 18; O2SAT 98
[2025-05-08 02:33] VITALS: BP 102/61; PULSE 68; RESP 18; TEMP 36.7; O2SAT 98
== END 2025-05-08 02:35 | disposition home or self-care (01) ==
PROVIDERS: Physician Assistant; Physician Assistant Medical; Emergency Provider Internal Medicine; PCP Internal Medicine
DX: L05.01 Pilonidal cyst with abscess (principal); R10.2 Pelvic and perineal pain; M54.50 Low back pain, unspecified
CPT/HCPCS: 10080; 36415; 74177; 80048; 83605; 85025; 87040; 96361; 96365; 96375; 99284; J2004; J2270; J2405; J2543

== ENCOUNTER → 2025-05-07 21:24 | Outpatient (BNV) | payer MEDICARE, MEDICAID, SELFPAY | PROVIDERS: Emergency Provider Internal Medicine; PCP Internal Medicine; Visit Provider Radiology Neuroradiology | DX: K61.1 Rectal abscess (principal) | CPT/HCPCS: 74177 ==

== ENCOUNTER 2025-05-09 10:32 | Emergency (ER) | payer MEDICARE, MEDICAID, SELFPAY ==
[2025-05-09 10:53] VITALS: BP 124/77; PULSE 74; RESP 16; TEMP 36.7; O2SAT 98; BMI 28.3
--- NOTE | 2025-05-09 10:55 | ED.SKABFB ---
HPI - Skin/Abscess/Foreign Bdy General Chief complaint: Skin/Abscess/Foreign Body Stated complaint: coming back for packaging removal Time Seen by Provider: 05/09/25 12:18 Source: patient and old records reviewed Mode of arrival: ambulatory Limitations: no limitations History of Present Illness ED Provider: JOSHUA MANDEL narrative: 24 yo male with PMH of prior pilonidal cyst here with c/o s/p I+D here on Thursday of perirectal abscess other than some pain he is feeling much better - he came today for packing removal. He is tolerating treatment well. He is taking his doxy and flagyl without issue. He has no fevers. Onset (ago): day(s) (few) Location: buttocks Severity: moderate Quality: aching Pain Consistency: intermittent Relieving factors: none Exacerbating factors: palpation Context: recent antibiotic and other Associated symptoms: denies other symptoms Treatments prior to arrival: antibiotic Related Data Previous Rx's ?Medication ?Instructions ?Recorded cephalexin 500 mg capsule 500 mg PO QID 7 days #28 caps 04/19/25 doxycycline hyclate 100 mg capsule 100 mg PO BID 7 days #14 caps 04/19/25 oxycodone 5 mg tablet 5 mg PO Q8H PRN pain (scale score 04/19/25 7-10) 3 days #9 tabs doxycycline hyclate 100 mg tablet 100 mg PO BID #20 tabs 05/08/25 metronidazole 500 mg tablet 500 mg PO TID #30 tabs 05/08/25 Allergies Allergy/AdvReac Type Severity Reaction Status Date / Time No Known Allergies Allergy Verified 05/09/25 10:56 Review of Systems Review of Systems: Constitutional : No Fever, No Chills ENT/Mouth : No sore throat, No Rhinorrhea Eyes: No Eye Pain, No Swelling, No Redness Cardiovascular : No Chest Pain, No SOB Respiratory : No Cough, No Sputum Gastrointestinal : No Nausea, No Vomiting, No Diarrhea, No abdominal Pain Genitourinary : No Dysuria, No Hematuria Musculoskeletal : No joint pain, No Myalgias, No Joint Swelling Skin : pos Skin Lesions, positive skin rash Neuro : No Weakness, No Numbness, No Headache All other systems reviewed and are negative PMFSH Past Medical History Attestation statement: The following information was validated with the patient. Source: old records reviewed Medical History (Updated 05/09/25 @ 12:55 by Alessandra Dugan DO) Pilonidal cyst Social History Social History (Updated 05/09/25 @ 12:49 by Alessandra Dugan DO) Unable to assess alcohol history related to: Unknown Alcohol intake: current Alcohol type: beer and hard liquor Patient Tobacco Use Status: Tobacco use Unknown Substance Use Type: Marijuana Physical Exam Vital Signs: Vital Signs: Last Vital Signs Temp 98.1 F 05/09/25 10:53 Pulse 74 05/09/25 10:53 Resp 16 05/09/25 10:53 BP 124/77 05/09/25 10:53 Pulse Ox 98 05/09/25 10:53 O2 Del Method Room Air 05/09/25 10:53 BMI result Body Mass Index 28.3 Appearance: Alert. Oriented X3. No acute distress. Eyes: Pupils equal, round and reactive to light. ENT: Pharynx normal. Neck: Normal inspection. CVS: Pulses normal. Respiratory: No respiratory distress. Abdomen: Soft and nontender. L buttock well healing mild bloody drainage from I+D site no large fluctuations and no cellulitis seen Skin: Skin warm and dry. Normal skin color. Extremities: No lower extremity edema. Neuro: Oriented X 3. No motor deficit. No sensory deficit. CN2-12 intact Course Course Course Narrative: 05/09/25 1055 GANESH Corea This is a Rapid Medical Examination (RME) performed by Jason Mchugh PA-C in triage. Full HPI, ROS, assessment and treatment plan per primary provider in the Main ED. Hx: 24 yo M here for wound re-check. had I&D performed 2 d ago for left gluteal abscess. packing placed. area has been draining. advised to return in 2d for packing removal. placed on doxy and flagyl. no fever/chills. pain w/ sitting. PE/vitals: unable to visualize in triage. Plan: further eval in back. Medical Decision Making Medical Decision Making MDM Narrative: 24 yo male with PMH of recurrent pilonidal cyst here with recent I+D at this time he is healing well with no systemic symptoms. I removed packing at bedside no issues, no sig drainage or fluctuance to need repeat packing. Looks well and no cellulits seen on buttocks no tracking or enlargement of abscess on exam. Appropriate healing. Differential Diagnosis Differential Diagnoses: The differential diagnosis associated with the presentation includes healing abscess Admission/Observation Consideration of admission/observation: Escalation of care including admission/observation considered appropriate treatment and progression at this time looks improved External Record Review External record reviewed: Outpatient record, Prior outpatient labs and Prior outpatient radiology Prescription Management I considered prescription management with: Pain Medication Discharge Plan Discharge Clinical Impression: Abscess of skin or subcutaneous tissue Patient Disposition: Home, Self-Care Instructions: Abscess (ED) Additional Instructions: finish all antibiotics okay to shower and do warm sitz baths return for worsening swelling, pain, drainage, fevers or any other concerns no pool, hot tub, bennett, ocean until fully healed this could take 2 weeks Prescriptions: No Action doxycycline hyclate 100 mg capsule 100 mg PO BID 7 Days Qty: 14 0RF cephalexin 500 mg capsule 500 mg PO QID 7 Days Qty: 28 0RF oxycodone 5 mg tablet 5 mg PO Q8H PRN (Reason: pain (scale score 7-10)) 3 Days Qty: 9 0RF Rx Instructions: Partial Fill upon patient request. doxycycline hyclate 100 mg tablet 100 mg PO BID Qty: 20 0RF metronidazole 500 mg tablet 500 mg PO TID Qty: 30 0RF Stand Alone Forms: Work/School Release Print Language: Chadian
[2025-05-09 12:42] VITALS: BP 124/77; PULSE 74; RESP 16; TEMP 36.7; O2SAT 98
[2025-05-09] MEDS: HYDROcodone Bit/Acetam 5/325 TABLET 1 TAB PO (12:46)
--- NOTE | 2025-05-09 12:48 | PC.NURSE ---
Patient presents to ED to remove packing from incision site on right buttock. Patient was seen here at [facility] for skin abscess and to return and have packing removed. Patient c/o pain rated 5/10. Denies fever,chills, sob, nausea, lightheadedness, dizziness. afebrile. VSS. Patient premedicated per provider orders.
[2025-05-09 13:22] VITALS: BP 124/77; PULSE 74; RESP 16; TEMP 36.7; O2SAT 98
--- OUTSIDE RECORDS SUMMARY | 2025-05-09 14:05 | XMS_ITS | Clinical Summary ---
Author Organization [employer] Address [address] [place] [address] [address] [place] [address] Care Team Providers Care Assembly Mechanic Name Role Phone Jerica Jeffries MD Primary Care Provider [phone] Allergies No known active allergies Medications Spacer/Aero-Holdi [...] Encounters Date Type Department Care Team Description 04/25/2025 Telephone [facility] [address] [place] [address] Jerica Jeffries MD 04/25/2025 Telephone [facility] [address] [place] [address] Jerica Jeffries MD ER Follow-up 04/19/2025 Orders Only GENERIC EXTERNAL DATA DEPARTMENT Provider, Generic External Data 02/21/2025 Refill [facility] [address] [place] [address] Jerica Jeffries MD from Last 3 Months [...] with others, in a hotel, in a prison, living outside on the street, on a [...] Vaccine ( - season) 2024 Influenza Vaccine (#1) 2025 8, 08/19/2016, 08/21/2015, Additional history exists Alcohol/Substance Use [...] Procedure Name Priority Date/Time Associated Diagnosis Comments CT ABDOMEN PELVIS W CONTRAST Routine 05/07/2025 11:01 PM EDT LACTIC ACID Routine 05/07/2025 9:38 PM EDT BLOOD CULTURE (FIRST) Routine 05/07/2025 9:36 PM EDT BLOOD CULTURE (SECOND) Routine 9:36 PM EDT BASIC METABOLIC PANEL Routine 05/07/2025 6:56 PM EDT CBC WITH AUTO DIFFERENTIAL Routine 05/07/2025 6:56 PM EDT GRAM STAIN RESULT (NON ORDERABLE) Routine 04/19/2025 6:09 PM EDT GRAM STAIN Routine 04/19/2025 6:09 PM EDT COMPREHENSIVE METABOLIC PANEL Routine 04/19/2025 12:54 PM EDT CBC WITH AUTO DIFFERENTIAL Routine 04/19/2025 12:54 PM EDT from Last 3 Months Results * CT Abdomen Pelvis w/ Contrast (05/07/2025 11:01 PM EDT) Anatomical Region Laterality Modality Body, Pelvis, Abdomen Computed T omography 05/07/2025 11:0 1 PM EDT Narrative 05/07/2025 11:02 PM EDT [place] [id number] CT Scan Report Signed Patient: Steven Angulo MR#: [id number] 4 : 2000 Acct:[id number] Age/Sex: 24 / M ADM Date: 05/07/25 Loc: HO.ED Attending Dr: Ordering Physician: Heavenly Brar Date of Service: 05/07/25 Procedure(s): CT abdomen pelvis w IV con Accession Number(s): [id number] cc: Jerica Jeffries MD; Heavenly Brar Report Number: [id number]: Total DLP = 488.00 mGy-cm CLINICAL HISTORY: perirectal abscess CT abdomen and pelvis with contrast Comparison: None provided Findings: No consolidation of the imaged lung bases. No liver mass by CT. Gallbladder is unremarkable for CT. The adrenal glands are normal. The spleen is nonenlarged. Pancreas unremarkable. No hydronephrosis. Multiple cystic lesions of the kidneys too small to characterize by CT. Small mesenteric lymph nodes are nonspecific and likely reactive. Fluid in the small bowel loops can be seen with enteritis. No small bowel obstruction. Imaged appendix is retrocecal and within normal limits (image 54 of series 3). Wall thickening of the large intestine is nonspecific and can be seen with mild colitis. Underdistention also considered, with otherwise moderate to severe stool burden. The prostate gland measures 3.7 cm transverse. Left dorsal perirectal and superficial fluid collection measures 2.2 x 3.9 x 3.5 cm as can be seen with reported of the abscess. No interim muscular accentuated are deemed accentuated in the pelvis. No drainable abscess within the peritoneum. Transitional vertebral anatomy. Sacralization of the L5 for the purposes of this dictation only. Mild cam shaft deformity of the proximal left femur. Superficial metal artifacts. IMPRESSION: Left dorsal perirectal abscess measures 3.9 cm. No deep accentuated into pelvis. This document has been electronically signed by: Stephane Petersen MD on 05/07/2025 23:01:28 Dictated By: Stephane Petersen MD Signed By: <Electronically signed by Stephane Petersen MD in OV> 05/07/252301 DD/ 00 TD/TT: 05/07/252300 Culinary Manager: Procedure Note Donotuseinterpreter, Image - 05/07/[address] [place] [address] [address] Scan Report Signed Patient: Valorie Angulo#: [id number] 4 : 2000Acct:[id number] Age/Sex: 24 / MADM Date: 05/07/25 Loc: HO.ED Attending Dr: Ordering Physician: Heavenly Brar Date of Service: 05/07/25 Procedure(s): CT abdomen pelvis w IV con Accession Number(s): [id number] cc: Jerica Jeffries MD; Heavenly Brar Report Number: [id number]: Total DLP = 488.00 mGy-cm CLINICAL HISTORY: perirectal abscess CT abdomen and pelvis with contrast Comparison: None provided Findings: No consolidation of the imaged lung bases. No liver mass by CT. Gallbladder is unremarkable for CT. The adrenal glands are normal. The spleen is nonenlarged. Pancreas unremarkable. No hydronephrosis. Multiple cystic lesions of the kidneys too small to characterize by CT. Small mesenteric lymph nodes are nonspecific and likely reactive. Fluid in the small bowel loops can be seen with enteritis. No small bowel obstruction. Imaged appendix is retrocecal and within normal limits (image 54 of series 3). Wall thickening of the large intestine is nonspecific and can be seen with mild colitis. Underdistention also considered, with otherwise moderate to severe stool burden. The prostate gland measures 3.7 cm transverse. Left dorsal perirectal and superficial fluid collection measures 2.2 x 3.9 x 3.5 cm as can be seen with reported of the abscess. No interim muscular accentuated are deemed accentuated in the pelvis. No drainable abscess within the peritoneum. Transitional vertebral anatomy. Sacralization of the L5 for the purposes of this dictation only. Mild cam shaft deformity of the proximal left femur. Superficial metal artifacts. IMPRESSION: Left dorsal perirectal abscess measures 3.9 cm. No deep accentuated into pelvis. This document has been electronically signed by: Stephane Petersen MD on 05/07/2025 23:01:28 Dictated By: Stephane Petersen MD Signed By: <Electronically signed by Stephane Petersen MD in OV> 05/07/252301 DD/ 00 TD/TT: 05/07/252300 Culinary Manager: [facility] External Provider IMG CT PROCEDURES Edited Result - Final * Lactic Acid (05/07/2025 9:38 PM EDT) [facility] Lactic Acid 1.2 0.5 - 2.0 mmol/L [facility] 05/07/2025 9:38 PM EDT 05/07/2025 9:49 PM EDT Generic External Data Provider LAB BLOOD ORDERAB LES Final Result [facility] [address] [place] [phone] * (ABNORMAL) CBC auto differential (05/07/2025 6:56 PM EDT) Only the most recent of2 resultswithin the time period is included. Pathologist [facility] White Blood Count 14.9(H) 4.8 - 10.8 X10*3/uL [facility] Red Blood Count 4.80 4.60 - 5.80 X10*6/uL [facility] Hemoglobin 14.4 14.0 - 18.0 g/dl [facility] Hematocrit 40.1(L) 42.0 - 52.0 % [facility] Mean Corpuscular Volume 83.5 80.0 - 98.0 fL [facility] Mean Corpuscular Hemoglobin 30.0 27.0 - 33.0 pg [facility] Mean Corpuscular HGB Conc 35.9 31.0 - 36.0 g/dl [facility] Red Cell Distribution Width 11.6 11.0 - 16.0 % [facility] Platelet Count 333 160 - 400 X10*3/uL [facility] Mean Platelet Volume 9.5 9.4 - 12.4 fL [facility] Neutrophils Percent Auto 86.7(H) 45 - 73 % [facility] Imm Gran Pct Auto 0.3 0.0 - 0.4 % [facility] Lymphocytes Percent Auto 6.4(L) 20 - 40 % [facility] Monocytes Percent Auto 6.3 2 - 11 % [facility] Eosinophils Percent Auto 0.1 0 - 4 % [facility] Basophils Percent Auto 0.2 0 - 2 % [facility] NRBC Pct Auto 0.0 0.0 - 0.2 /100WBC [facility] Neutrophils Absolute Auto 12.9(H) 2.0 - 8.3 x10*3/uL [facility] Imm Gran Abs Auto 0.04(H) 0.00 - 0.03 X10*3/uL [facility] Lymphocytes Absolute Auto 1.0(L) 1.2 - 4.9 X10*3/uL [facility] Monocytes Absolute Auto 0.9 0.1 - 1.2 X10*3/uL [facility] Eosinophils Absolute Auto 0.0 0.0 - 0.4 X10*3/uL [facility] Basophils Absolute Auto 0.0 0.0 - 0.2 X10*3/uL [facility] NRBC Abs Auto 0.000 0.0 - 0.012 X10*3/uL [facility] 05/07/2025 6:56 PM EDT 05/07/2025 7:00 PM EDT us Generic External Data Provider LAB BLOOD ORDERAB LES Final Result [facility] [address] [place] [phone] * (ABNORMAL) Basic Metabolic Panel (05/07/2025 6:56 PM EDT) Sodium 139 135 - 145 mmol/L [facility] Potassium 3.6 3.3 - 5.1 mmol/L [facility] Chloride 106 96 - 108 mmol/L [facility] Carbon Dioxide 21(L) 22 - 29 mmol/L [facility] Anion Gap 16 12 - 20 [facility] Urea Nitrogen (BUN) 8(L) 9 - 16 mg/dL [facility] Creatinine, Serum 1.12 0.5 - 1.4 mg/dL [facility] Creatinine Clr Calc Pharmacy 91.6 [facility] Comment:eGFR (calculated fro m the MDRD study equation) and eCrCl(calculated from the Cockcroft-Gault equation) are based ondifferent parameters and may not yield comparable results.If eCrCl result is absurd, please check patient'sheight/weight. Estimated Glomerular Filt Rate >60 [facility] Comment:Chronic Kidney Disea se: Estimated GFR < 60 mL/min/1.76y6Uxtize Kidney Disease: Estimated GFR < 15 mL/min/1.73m2 Glucose 125(H) 60 - 115 mg/dL [facility] Calcium 9.7 8.4 - 10.2 mg/dL [facility] 05/07/2025 6:56 PM EDT 05/07/2025 7:00 PM EDT us Generic External Data Provider LAB BLOOD ORDERAB LES Final Result [facility] [address] [place] [phone] * Gram Stain Result (04/19/2025 6:09 PM EDT) 04/19/2025 6:09 PM EDT 04/19/2025 6:14 PM EDT Comment:Buttock Narrative [facility] - 04/22/2025 8:33 AM EDT Gram stain results: 2+ polys 4+ red blood cells 2+ Gram-positive cocci Staphylococcus aureus Quant Org ID 3+ Staphylococcus aureus: Clindamycin <=0.25(S) Staphylococcus aureus: Erythromycin <=0.25(S) Staphylococcus aureus: Levofloxacin <=0.12(S) Staphylococcus aureus: Oxacillin 0.5(S) Staphylococcus aureus: Penicillin-G >=0.5(R) Staphylococcus aureus: Tetracycline <=1(S) Staphylococcus aureus: Trimethoprim/Sulfamethoxazole <=10(S) Specimen Source: [facility] Generic External Data Provider HISTORICAL/NON OR DERABLE LABS Final Result Performing Organization Address [facility] Co de Phone Number [facility] [address] [place] [phone] * Gram stain (04/19/2025 6:09 PM EDT) 04/19/2025 6:09 PM EDT 04/19/2025 6:14 PM EDT Comment:Diego Anderosn [facility] - 04/20/2025 8:38 AM EDT Gram stain results: 2+ polys 4+ red blood cells 2+ Gram-positive cocci Routine Culture Culture in progress. Specimen Source: [facility] Generic External Data Provider LAB MICROBIOLOGY - GENERAL ORDERABLES Final Result Performing Organization Address [facility] Co de Phone Number [facility] [address] [place] [phone] * (ABNORMAL) Comprehensive Metabolic Panel (04/19/2025 12:54 PM EDT) Sodium 141 135 - 145 mmol/L [facility] Potassium 3.7 3.3 - 5.1 mmol/L [facility] Chloride 107 96 - 108 mmol/L [facility] Carbon Dioxide 27 22 - 29 mmol/L [facility] Anion Gap 11(L) 12 - 20 [facility] Urea Nitrogen (BUN) 10 9 - 16 mg/dL [facility] Creatinine, Serum 1.04 0.5 - 1.4 mg/dL [facility] Creatinine Clr Calc Pharmacy 99.0 [facility] Comment:eGFR (calculated fro m the MDRD study equation) and eCrCl(calculated from the Cockcroft-Gault equation) are based ondifferent parameters and may not yield comparable results.If eCrCl result is absurd, please check patient'sheight/weight. Estimated Glomerular Filt Rate >60 [facility] Comment:Chronic Kidney Disea se: Estimated GFR < 60 mL/min/1.38o8Jamims Kidney Disease: Estimated GFR < 15 mL/min/1.73m2 Glucose 88 60 - 115 mg/dL [facility] Calcium 9.4 8.4 - 10.2 mg/dL [facility] Bilirubin, Total 0.5 0.0 - 1.0 mg/dL [facility] Aspartate Amino Transferase 22 5 - 37 U/L [facility] Alanine Aminotransferase 17 0 - 40 U/L [facility] Total Protein 7.5 6.5 - 8.0 g/dL [facility] Albumin Level 4.4 3.5 - 5.0 g/dL [facility] Alkaline Phosphatase 86 39 - 117 U/L [facility] 04/19/2025 12:5 4 PM EDT 04/19/2025 12:56 PM EDT us Generic External Data Provider LAB BLOOD ORDERAB LES Final Result [facility] [address] [place] [address] [phone] from Last [address] [place] [address] [address] [employer] MED[employer] Care Teams Assembly Mechanic Relationship Specialty Start Date End Date Jerica Jeffries MD [address] [place] [phone] PCP - General Internal Medicine 12/26/24
== END 2025-05-09 13:22 | disposition home or self-care (01) ==
PROVIDERS: Emergency Provider Emergency Medicine; PCP Internal Medicine
DX: K61.1 Rectal abscess (principal); Z48.01 Encounter for change or removal of surgical wound dressing
CPT/HCPCS: 99283; 99284

== ENCOUNTER 2025-05-21 17:15 | Inpatient (IN) | payer MEDICARE, MEDICAID, SELFPAY ==
[2025-05-21] VITALS (9 sets, daily range): BP systolic 111–129; BP diastolic 60–79; PULSE 75–110; RESP 16–18; TEMP 36.6–38.1; O2SAT 94–100; BMI 28.0
--- NOTE | ~2025-05-21 | CT_ITS ---
CLINICAL HISTORY: known periectal abscess, progression?? fistula?? CT Abdomen and Pelvis W Contrast COMPARISON: CT/SR - ABDOMEN ABD_PELVIS_IV_CONTRAST (ADULT) - 05/07/25 21:59 EDT FINDINGS: Medial lower left buttock subcutaneous fat/perianal abscess now measures 4.2 x 1.3 x 3.8 cm (previously 4.2 x 2.7 x 4.2 cm when measured in the same way). Normal liver. Normal spleen. Right worse than left patchy renal cortical hypoenhancement. No hydronephrosis. Normal adrenal glands. Normal pancreas. No visible cholelithiasis. No biliary dilation. No evidence of bowel obstruction or colitis. Normal appendix. Unremarkable bladder. No ascites. No pneumoperitoneum. No lymphadenopathy. No acute fracture. No abdominal aortic aneurysm. IMPRESSION: Slightly decreased medial lower left buttock subcutaneous fat/perianal abscess. Right worse than left renal cortical hypoenhancement consistent with pyelonephritis. This document has been electronically signed by: aVldo Landin MD on 05/21/2025 22:38:23
--- NOTE | 2025-05-21 17:48 | ED_ITS ---
HPI - General Adult General Chief complaint: Skin/Abscess/Foreign Body Stated complaint: ingrown hair been here before for same issue Time Seen by Provider: 05/21/25 20:30 Source: patient Limitations: no limitations History of Present Illness ED Provider: Heavenly Brar PA-C HPI narrative: 24-year-old male who is otherwise healthy presents with left buttock pain. Patient was seen in the emergency department on May 07, he was found to have a large perirectal abscess, it was subsequently drained at bedside by Dr. Chambers. The patient returned to the emergency department on May 09, due to worsening pain and inability to remove the packing. Patient states his discomfort has progressed. Associated active purulent drainage from the site, No known fevers. Related Data Home Medications ?Medication ?Instructions ?Recorded ?Confirmed albuterol sulfate 90 mcg/actuation 1 puff inhalation Q 4H PRN 05/22/25 05/22/25 aerosol inhaler Shortness Of Breath Or Wheez ing Allergies Allergy/AdvReac Type Severity Reaction Status Date / Time No Known Allergies Allergy Verified 05/21/25 17:48 Review of Systems 2 Review of Systems: Yes all other systems are reviewed and are negative Constitutional: Constitutional: Denies fatigue and Denies fever(s) Cardiovascular: Cardiovascular: Denies chest pain and Denies dyspnea Respiratory: Respiratory: Denies cough and Denies dyspnea Gastrointestinal: Gastrointestinal: Denies abdominal pain, Denies nausea and Denies vomiting Endocrine: Endocrine: Denies fatigue PMF Past Medical History Attestation statement: The following information was validated with the patient. Medical History (Updated 05/22/25 @ 10:27 by Henri Serrano PA-C) Pilonidal cyst Social History Social History (Updated 05/09/25 @ 12:49 by Alessandra Dugan DO) Household Members: Significant Other Housing: Apartment Do you presently have visiting nurse or other home services: No Unable to assess alcohol history related to: Unknown Alcohol intake: current Alcohol intake frequency: holidays/special occasions only Alcohol type: beer and hard liquor Patient Tobacco Use Status: Never used Tobacco Smoked in Last 30 Days: No Use of substances other than those prescribed or required for medical reasons: Yes Substance Use Type: Marijuana Have you been hit, kicked, punched, or otherwise hurt by someone within the past year? If so, by whom?: No Do you feel safe in your current relationship?: Yes Is there a partner from a previous relationship who is making you feel unsafe now?: No Are you made to feel afraid or neglected: No Advance Directives: No Advance Directives Information Provided: No Do you have a plan to hurt others: No Plan Nutrition Risks: No Nutritional Risk Poor oral hygiene: No service: No Physical Exam ED Exam Exam: Alert, well-appearing Vital Signs: Vital Signs - 24 hr 05/21/25 17:44 05/21/25 21:20 05/21/25 21:28 Temperature 98.4 F 100.5 F H Pulse Rate 110 H 90 89 Respiratory Rate 18 18 18 Blood Pressure 114/76 111/65 129/79 Pulse Oximetry 97 99 100 Oxygen Delivery Method Room Air Room Air Room Air 05/21/25 21:49 05/21/25 22:05 05/21/25 22:29 Temperature 97.9 F 97.9 F Pulse Rate 98 87 Respiratory Rate 18 Blood Pressure 112/60 117/63 Pulse Oximetry 98 97 Oxygen Delivery Method Room Air Room Air 05/21/25 22:49 05/21/25 23:26 05/21/25 23:56 Temperature Pulse Rate 84 75 Respiratory Rate 16 Blood Pressure 115/73 122/69 113/73 Pulse Oximetry 94 96 Oxygen Delivery Method Room Air Room Air BMI result Body Mass Index 28.0 Const Orientation/consciousness: patient oriented x3 Resp Effort & Inspection: normal respiratory effort Cardio Other: Normal peripheral perfusion GI Other: Fluctuant wound noted over left inner buttock along the crease, active purulent drainage from the site, approximately 30 cc, that erupted spontaneously Skin Other: Warm dry no rash Neuro General: patient oriented x3, gait normal, no focal motor deficits and CN's II- XI intact bilaterally Psych Other: Cooperative Course Course Course Narrative: RME: 24 yold male presents to the ED for evaluation for buttock abscess that is tenderness. patient to be evaluated in the ED. Reevaluation(s) Reevaluation #1: At 8:55 p.m. on May 21, a sepsis focused exam was performed. The patient has a rectal temp of 100.4?, he is tachycardic. Adding on blood cultures, lactic acid, starting weight based IV fluid therapy and starting antibiotics, for his failed outpatient management of his perirectal abscess. Time: 20:55 Reevaluation #2: Per the CT scan, the patient has pyelonephritis, he denies dysuria, mid back pain or active nausea vomiting, obtaining a urinalysis Reevaluation #3: Urine not infected, the patient does not have pyelonephritis, this is muscle bed an over-read on their part, his sepsis source is clearly from his perirectal abscess Consultations Consultation #1: Dr. Farrell........ Time: 23:00 Consultation #2: per Dr. Farrell....... She will admit the patient to her service, he will go to the OR in the morning Time: 23:38 Medications Administered Generic Name Dose Route Start Last Admin Trade Name Freq PRN Reason Stop Dose Admin Sodium Chloride 1,000 mls @ 100 mls/hr 05/22/25 00:45 05/22/25 10:51 Ns IVCONT 100 mls/hr .Q10H MAYA Administration Piperacillin Sod/Tazobactam 50 mls @ 100 mls/hr 05/22/25 06:00 05/22/25 12:18 Sod 3.375 gm/ Sodium Chloride IV 100 mls/hr Q6H MYAA Administration Ketorolac Tromethamine 15 mg 05/22/25 06:00 05/22/25 12:18 Ketorolac Tromethamine 15 Mg/Ml Vial IVPUSH 15 mg RQ6H MAYA Administration Morphine Sulfate 3 mg 05/22/25 00:31 05/22/25 03:12 Morphine Sulfate 4 Mg/Ml Cartridge IVPUSH 3 mg ONCE PRN Administration Pain, Severe (Pain Scale 7-10) Protocol Sodium Chloride 3 ml 05/22/25 08:00 05/22/25 07:39 0.9 % Sodium Chloride Flush 3 Ml Syringe IVFLUSH Not Given QSHIFT MAYA Discontinued Medications Generic Name Dose Route Start Last Admin Trade Name Freq PRN Reason Stop Dose Admin Acetaminophen 975 mg 05/21/25 20:41 05/21/25 21:05 Acetaminophen 325 Mg Tablet PO 05/21/25 20:42 975 mg ONCE ONE Administration Sodium Chloride 2,154 mls @ 2,154 mls/hr 05/21/25 20:41 05/21/25 22:05 Ns 30 ml/kg infuse over 1 hr (2154 ml) 05/21/25 21:40 Infused IV Infusion .Q1H STA Vancomycin HCl 1,500 mg/ 500 mls @ 333.333 mls/hr 05/21/25 20:55 05/21/25 22:55 Sodium Chloride IV 05/21/25 22:24 Infused ONCE ONE Infusion Piperacillin Sod/Tazobactam 50 mls @ 100 mls/hr 05/21/25 20:55 05/21/25 21:38 Sod 3.375 gm/ Sodium Chloride IV 05/21/25 21:24 Infused ONCE ONE Infusion Iohexol 85 ml 05/21/25 21:54 05/21/25 21:54 Iohexol 350 Mg/Ml 100 Ml Infus..Btl IV 05/21/25 21:55 85 ml ONCE ONE Administration Morphine Sulfate 10 mg 05/21/25 20:31 05/21/25 21:26 Morphine Sulfate 10 Mg/Ml Cartridge IVPUSH 05/21/25 20:32 10 mg ONCE ONE Administration Protocol Morphine Sulfate 4 mg 05/21/25 23:48 05/21/25 23:53 Morphine Sulfate 4 Mg/Ml Cartridge IVPUSH 05/21/25 23:49 4 mg ONCE ONE Administration Protocol Ondansetron HCl 4 mg 05/21/25 23:40 05/21/25 23:53 Ondansetron Hcl 4 Mg/2 Ml Vial IVPUSH 05/21/25 23:41 4 mg ONCE ONE Administration Medical Decision Making Medical Decision Making MDM Narrative: 24-year-old male who is otherwise healthy presents with left buttock pain. Patient was seen in the emergency department on May 07, he was found to have a large perirectal abscess, it was subsequently drained at bedside by Dr. Chambers. The patient returned to the emergency department on May 09, due to worsening pain and inability to remove the packing. Patient states his discomfort has progressed. Associated active purulent drainage from the site, No known fevers. Problem: Known perirectal abscess History: Per patient I have considered the following differential diagnoses: Reaccumulation of perirectal abscess, failed outpatient management of cellulitis/abscess, fistula formation, sepsis Plan: Concerned for sepsis, the patient is tachycardic, with an objective fever. Sepsis alert documented, in addition to labs, blood cultures and lactic ordered. He is receiving weight based IV fluids, Tylenol, vanco and Zosyn. I am obtaining a CT scan of the abdomen and pelvis, I will likely be calling out to the surgical service. Giving morphine for his pain. I have independently reviewed the following tests: Labs: Significant leukocytosis with left shift, no electrolyte abnormality, lactic 1.1 CT abdomen and pelvis: FINDINGS: Medial lower left buttock subcutaneous fat/perianal abscess now measures 4.2 x 1.3 x 3.8 cm (previously 4.2 x 2.7 x 4.2 cm when measured in the same way). Normal liver. Normal spleen. Right worse than left patchy renal cortical hypoenhancement. No hydronephrosis. Normal adrenal glands. Normal pancreas. No visible cholelithiasis. No biliary dilation. No evidence of bowel obstruction or colitis. Normal appendix. Unremarkable bladder. No ascites. No pneumoperitoneum. No lymphadenopathy. No acute fracture. No abdominal aortic aneurysm. IMPRESSION: Slightly decreased medial lower left buttock subcutaneous fat/perianal abscess. Right worse than left renal cortical hypoenhancement consistent with pyelonephritis. Sending a urinalysis now Lab Data 05/21/25 20:51 05/21/25 20:51 Labs: Lab Results 05/21/25 05/21/25 Range/Units 20:51 22:56 WBC 16.7 H (4.8-10.8) X10*3/uL RBC 4.78 (4.60-5.80) X10*6/uL Hgb 14.4 (14.0-18.0) g/dl Hct 39.9 L (42.0-52.0) % MCV 83.5 (80.0-98.0) fL MCH 30.1 (27.0-33.0) pg MCHC 36.1 H (31.0-36.0) g/dl RDW 11.5 (11.0-16.0) % Plt Count 288 (160-400) X10*3/uL MPV 9.3 L (9.4-12.4) fL Immature Gran % (Auto) 0.4 (0.0-0.4) % Neut % (Auto) 85.1 H (45-73) % Lymph % (Auto) 8.2 L (20-40) % [place] % (Auto) 5.9 (2-11) % Eos % (Auto) 0.2 (0-4) % Baso % (Auto) 0.2 (0-2) % Lymph # (Auto) 1.4 (1.2-4.9) X10*3/uL [place] # (Auto) 1.0 (0.1-1.2) X10*3/uL Eos # (Auto) 0.0 (0.0-0.4) X10*3/uL Baso # (Auto) 0.0 (0.0-0.2) X10*3/uL Abs Immat Gran (auto) 0.06 H (0.00-0.03) X10*3/uL Absolute Neuts (auto) 14.2 H (2.0-8.3) x10*3/uL Absolute Nucleated RBC 0.000 (0.0-0.012) X10*3/uL Nucleated RBC % (auto) 0.0 (0.0-0.2) /100WBC Sodium 139 (135-145) mmol/L Potassium 3.7 (3.3-5.1) mmol/L Chloride 106 (96-108) mmol/L Carbon Dioxide 24 (22-29) mmol/L Anion Gap 13 (12-20) BUN 8 L (9-16) mg/dL Creatinine 0.88 (0.5-1.4) mg/dL Estim Creat Clear Calc 115.0 Estimated GFR > 60 Random Glucose 72 (60-115) mg/dL Lactic Acid 1.1 (0.5-2.0) mmol/L Calcium 9.6 (8.4-10.2) mg/dL Magnesium 2.2 (1.6-2.6) mg/dL Total Bilirubin 0.7 (0.0-1.0) mg/dL AST 26 (5-37) U/L ALT 33 (0-40) U/L Alkaline Phosphatase 101 (39-117) U/L Total Protein 8.6 H (6.5-8.0) g/dL Albumin 5.0 (3.5-5.0) g/dL Urine Color Yellow Urine Appearance Clear Urine pH 6.5 (5.0-9.0) Ur Specific [place] 1.020 (1.005-1.025) Urine Protein Negative (Neg-Trace) mg/dL Urine Glucose (UA) Negative (Negative) mg/dL Urine Ketones Negative (Negative) mg/dL Urine Blood Negative (Negative) Urine Nitrite Negative (Negative) Ur Leukocyte Esterase Negative (Negative) Discharge Plan Discharge Clinical Impression: Vielka-rectal abscess Sepsis Qualifiers: Sepsis type: sepsis due to unspecified organism Patient Disposition: Admitted As Inpatient Interventions: Admission Worksheet (ED) Last Done: 05/22/25 08:17 Discharge Date/Time: 05/22/25 09:12
--- NOTE | 2025-05-21 20:20 | PC.NURSE ---
pt called this nurse into exam room, pt stated I think my abscess opened pt boxers noted to have circular area of purulence. clothing was removed, abscess on inner left buttock had indeed opened and was actively draining thick bray, yellow, foul smelling, purulence. It was at this time that it was noted that pt felt warm to the touch. PA Brar to bed side, rectal temp was obtained- pt febrile at 100.5. IV access was established in left AC- additional labs including lactic and cultures were obtained. Sepsis protocol initiated. Pt is a pleasant 24 y/o Male a&o x4 independent with ADL's at baseline. Pt has had multiple visits recently for perirectal abbesses. CT imaging obtained.
[2025-05-21 20:59] LABS: MANUAL DIFF FLAG NO
[2025-05-21 21:00] LABS: Hematocrit 39.9 % (42.0-52.0); Hemoglobin 14.4 g/dl (14.0-18.0); Imm Gran Abs Auto 0.06 X10*3/uL (0.00-0.03); Imm Gran Pct Auto 0.4 % (0.0-0.4); Lymphocytes Absolute Auto 1.4 X10*3/uL (1.2-4.9); Mean Corpuscular HGB Conc 36.1 g/dl (31.0-36.0); Mean Corpuscular Hemoglobin 30.1 pg (27.0-33.0); Mean Corpuscular Volume 83.5 fL (80.0-98.0); NRBC Abs Auto 0.000 X10*3/uL (0.0-0.012); NRBC Pct Auto 0.0 /100WBC (0.0-0.2); Platelet Count 288 X10*3/uL (160-400); Red Blood Count 4.78 X10*6/uL (4.60-5.80); White Blood Count 16.7 X10*3/uL (4.8-10.8)
[2025-05-21] MEDS: SODIUM CHLORIDE 2154 ML IV (21:05)
[2025-05-21 21:13] LABS: Alanine Aminotransferase 33 U/L (0-40); Albumin Level 5.0 g/dL (3.5-5.0); Alkaline Phosphatase 101 U/L (39-117); Anion Gap 13 (12-20); Aspartate Amino Transferase 26 U/L (5-37); Blood Urea Nitrogen 8 mg/dL (9-16); Calcium 9.6 mg/dL (8.4-10.2); Carbon Dioxide 24 mmol/L (22-29); Chloride 106 mmol/L (96-108); Creatinine Clr Calc Pharmacy 115.0; Estimated Glomerular Filt Rate > 60; Magnesium 2.2 mg/dL (1.6-2.6); Potassium 3.7 mmol/L (3.3-5.1); Sodium 139 mmol/L (135-145); Total Protein 8.6 g/dL (6.5-8.0)
[2025-05-21] MEDS: iohexoL 350 MG/ML 100 ML INFUS..BTL 85 ML IV (21:54)
[2025-05-21 23:15] LABS: Appearance Urine Clear; Glucose Urine UA Negative (Negative); PH 6.5 (5.0-9.0); Specific Gravity - Urine 1.020 (1.005-1.025)
--- NOTE | 2025-05-22 00:04 | PC.NURSE ---
pt had 1 episode of vomiting, PA notified, zofran given. Pt medicated with 4mg MsO4 for 6/10 left buttock pain. PA Brar to bedside, disclosed findings of CT scan to be significant for perirectal abscess, as well as pyelonephritis. UA sent. Pt to be admitted to surgery service for further treatment in OR tomorrow. Pt made NPO at this time. Belongings list completed. Plan of care ongoing, call [place] within reach.
--- NOTE | 2025-05-22 03:15 | PC.NURSE ---
this rn assumed care of pt from [facility] @ [id number]. pt reporting 08/04 pain pt medicated accridng to mar
--- NOTE | 2025-05-22 07:48 | PC.NURSE ---
assumed care of pt at 0730, pt resting quietly in bed, a&ox4, reports decreased drainage from abscess site. endorsing 3/10 pain. pt expressing frustration at unknown dispo - surgery at bedside earlier this morning, unclear if pt is going to the OR. NPO - ice chips ok. pt pending bed assignment.
[2025-05-22 08:24] VITALS: BP 121/73; PULSE 73; RESP 16; TEMP 36.8; O2SAT 96
--- NOTE | 2025-05-22 08:29 | PHA.MEDREC ---
Addendum entered by Kashif Young RPh 05/22/25 09:19: Reviewed by [facility] Original Note: Pharmacy Consult ? Medication Reconciliation Pharmacy has completed the medication reconciliation. Spoke to patient and he confirmed he only has and albuterol HFA inhaler PRN.
--- NOTE | 2025-05-22 08:49 | P.HPGS_ITS ---
History of Present Illness History of Present Illness Date of Service: 05/22/25 <Henri Serrano PA-C - Last Filed: 05/22/25 13:12> 05/22/25 <Cass Farrell MD - Last Filed: 05/22/25 19:15> Chief complaint: rectal pain <Henri Serrano PA-C - Last Filed: 05/22/25 13:12> Narrative: Steven Angulo is a 24 year old male with a history of asthma, perirectal abscess requiring ID on 05/07, returning with increased pain at the site for the last few days. patient reports he has done everything the ED providers told him, including abx and cleaning the wound. Denies fever, chills. He states he was unable to sit down because of the discomfort. When he was in the ED the wound began to spontaneously drain, he describes it as some blood and some pus. Pain improved after draining. He met sepsis criteria in ED and was started on IV fluid, vanco and zosyn. Ct scan shows mild improvement in the abscess compared to the previous imaging. previous wound culture growing staph aureus. Daily meds include albuterol, Endorses marijuana use, occasional alcohol use. no known allergies. <Henri Serrano PA-C - Last Filed: 05/22/25 13:12> Review of Systems Review of Systems: Yes all other systems are reviewed and are negative <Henri Serrano PA-C - Last Filed: 05/22/25 13:12> FOR[facility]LY [facility] Past Medical History Medical History: Medical History (Updated 05/22/25 @ 13:11 by Henri Serrano PA-C) Pilonidal cyst <Henri Serrano PA-C - Last Filed: 05/22/25 13:12> Social History Social History: Social History (Updated 05/09/25 @ 12:49 by Alessandra Dugan DO) Household Members: Significant Other Housing: Apartment Do you presently have visiting nurse or other home services: No Unable to assess alcohol history related to: Unknown Alcohol intake: current Alcohol intake frequency: holidays/special occasions only Alcohol type: beer and hard liquor Patient Tobacco Use Status: Never used Tobacco Substance Use Type: Marijuana service: No <Henri Serrano PA-C - Last Filed: 05/22/25 13:12> Meds Allergies/Adverse reactions: Allergies Allergy/AdvReac Type Severity Reaction Status Date / Time No Known Allergies Allergy Verified 05/21/25 17:48 <Henri Serrano PA-C - Last Filed: 05/22/25 13:12> Active Medications: Current Medications Sodium Chloride (Ns) 1,000 mls @ 100 mls/hr IVCONT .Q10H [facility] Last Admin: 05/22/25 00:54 Dose: 100 mls/hr Piperacillin Sod/Tazobactam (Sod 3.375 gm/ Sodium Chloride) 50 mls @ 100 mls/hr IV Q6H [facility] Last Infusion: 05/22/25 07:02 Dose: Infused Ketorolac Tromethamine (Ketorolac Tromethamine 15 Mg/Ml Vial) 15 mg IVPUSH RQ6H [facility] Last Admin: 05/22/25 06:32 Dose: 15 mg Magnesium Hydroxide (Milk Of Magnesia 30 Ml Oral.Susp) 30 ml PO DAILY PRN PRN Reason: Constipation Melatonin (Melatonin 3 Mg Tablet) 6 mg PO BEDTIME PRN PRN Reason: Insomnia Morphine Sulfate (Morphine Sulfate 4 Mg/Ml Cartridge) 3 mg IVPUSH ONCE PRN; Protocol PRN Reason: Pain, Severe (Pain Scale 7-10) Last Admin: 05/22/25 03:12 Dose: 3 mg Ondansetron HCl (Ondansetron Hcl 4 Mg/2 Ml Vial) 4 mg IVPUSH Q8H PRN PRN Reason: Nausea and Vomiting Sodium Chloride (0.9 % Sodium Chloride Flush 3 Ml Syringe) 3 ml IVFLUSH QSHIFT [facility] Last Admin: 05/22/25 07:39 Dose: Not Given <Henri Serrano PA-C - Last Filed: 05/22/25 13:12> Home medications: Home Medications ?Medication ?Instructions ?Recorded ?Confirmed ?Last Taken ?Type albuterol sulfate 90 mcg/actuation 1 puff inhalation Q 4H PRN 05/22/25 05/22/25 Unknown History aerosol inhaler Shortness Of Breath Or Wheez ing <Henri Serrano PA-C - Last Filed: 05/22/25 13:12> Physical Exam Vital Signs: Vital Signs: Last Vital Signs Temp 98.2 F 05/22/25 08:24 Pulse 73 05/22/25 08:24 Resp 16 05/22/25 08:24 BP 121/73 05/22/25 08:24 Pulse Ox 96 05/22/25 08:24 O2 Del Method Room Air 05/22/25 08:24 BMI result Body Mass Index 28.0 <Henri SerranoEHSAN Amy Last Filed: 05/22/25 13:12> Const: General: comfortable and no acute distress <Henri MaggieEHSAN Amy Last Filed: 05/22/25 13:12> Nutritional Appearance: average body habitus <Henri MaggieEHSAN Amy Last Filed: 05/22/25 13:12> Orientation/consciousness: patient oriented x3 <Henri MaggieGANESHAmyMitchell Amy Last Filed: 05/22/25 13:12> Resp: Effort & Inspection: normal respiratory effort and able to speak in complete sentences <Henri EHSAN Serrano Amy Last Filed: 05/22/25 13:12> GI: Other: left buttock: 1 cm open wound at the pervious I&D site, mild to moderate induration on the let buttock about 2 cm from midline. Mildly tender. Draining purulent serosanguineous drainage <Henri MaggieEHSAN Amy Last Filed: 05/22/25 13:12> Neuro: General: patient oriented x3 <Henri Serrano PA-C Amy Last Filed: 05/22/25 13:12> Results Results Labs: Short CBC 05/21/25 Range/Units 20:51 WBC 16.7 H (4.8-10.8) X10*3/uL Hgb 14.4 (14.0-18.0) g/dl Hct 39.9 L (42.0-52.0) % Plt Count 288 (160-400) X10*3/uL BMP 05/21/25 20:51 Sodium 139 Potassium 3.7 Chloride 106 Carbon Dioxide 24 BUN 8 L Creatinine 0.88 Calcium 9.6 Liver Function 05/21/25 Range/Units 20:51 Total Bilirubin 0.7 (0.0-1.0) mg/dL AST 26 (5-37) U/L ALT 33 (0-40) U/L Alkaline Phosphatase 101 (39-117) U/L Albumin 5.0 (3.5-5.0) g/dL Urine 05/21/25 Range/Units 22:56 Urine Color Yellow Urine Appearance Clear Urine pH 6.5 (5.0-9.0) Ur Specific [place] 1.020 (1.005-1.025) Urine Protein Negative (Neg-Trace) mg/dL Urine Glucose (UA) Negative (Negative) mg/dL <Henri Serrano PA-C - Last Filed: 05/22/25 13:12> Assessment and Plan (1) Vielka-rectal abscess: Status: Acute <Henri Serrano PA-C - Last Filed: 05/22/25 13:12> 24 year old male with a history of asthma presenting to ED with recurrent perirectal pain after I&D on 05/07. Patient began feelign more discomfort which brought him in, initially was meeting sepsis protocol so was started on fluids, vanco and zosyn. The area began sponatenously draining purulent bloody discharge while in the ED which improved his symptoms. Now pain is currently 5/10, but he is more comfortable at rest. On Ct scan the area does seem improved from the previous imaging but there is a collection. On exam there is a 1 cm open wound that i was able to express some purulent bloody discharge from. There was modera te induration of the surrounding tissue. Tender to palpation. Patient not tolerating packing at bedside, will need a larger incision to facilitate drainage, likely wouldnt be able to tolerate at bedside due to pain. Discussed case with attending physician Dr. Farrell, who will take him to OR this afternoon. Patient agreeable to plan NPO IV abx and fluids add on for this afternoon pain control blood cultures pending. <Henri Serrano PA-C - Last Filed: 05/22/25 13:12> 24 year old male with a history of asthma presenting to ED with recurrent perirectal pain after I&D on 05/07. Patient began feelign more discomfort which brought him in, initially was meeting sepsis protocol so was started on fluids, vanco and zosyn. The area began sponatenously draining purulent bloody discharge while in the ED which improved his symptoms. Now pain is currently 5/10, but he is more comfortable at rest. On Ct scan the area does seem improved from the previous imaging but there is a collection. On exam there is a 1 cm open wound that i was able to express some purulent bloody discharge from. There was moderate induration of the surrounding tissue. Tender to palpation. Patient not tolerating packing at bedside, will need a larger incision to facilitate drainage, likely wouldnt be able to tolerate at bedside due to pain. Discussed case with attending physician Dr. Farrell, who will take him to OR this afternoon. Patient agreeable to plan NPO IV abx and fluids add on for this afternoon pain control blood cultures pending. PATIENT IS A 24-YEAR-OLD MALE WITH A LEFT PERIRECTAL ABSCESS who was seen in the emergency room several times for I and D and then for packing removal. One buttock abscess revealed staph aureus not MRSA in the past. Patient denies any MRSA history. He came in overnight because of increased pain and recurrence of the abscess area on the left side. Who is a little frustrated as this keeps coming back. We discussed taking him to the OR to have a better incision and drainage and debridement of the potential tract but he says that since he came to the ER room overnight into this morning the area has drained a lot and then with pushing and squeezing that more purulent material has been removed and he feels much better. We talked about going to the operating room and he has some concerns that the cost of this is more than he can handle and being away from home. He is in agreement to stay at the hospital for some IV antibiotics today and then to be discharged home on p.o. Augmentin and then to evaluate as an outpatient in the office. In the meantime he will do Sitz baths and squeeze the area to make sure that it completely drains out. Uncertain why he has this recurrence not quite consistent with a pilonidal cyst. The left buttock cheek area adjacent to the cleft has a small opening that is draining bloody purulent material more so bloody at this point. Plan to facilitate conservative care due to the patient's wishes. Agree with the assessment and plan by GANESH Serrano in the above note. <Cass Farrell MD - Last Filed: 05/22/25 19:15> Quality Stroke Does the patient have a stroke diagnosis?: No <Henri Serrano PA-C - Last Filed: 05/22/25 13:12> VTE Prior VTE?: No <Henri Serrano PA-C - Last Filed: 05/22/25 13:12> VTE Risk Level:: Surgical - low <Henri Serrano PA-C - Last Filed: 05/22/25 13:12> VTE Device Contraindication: N/A - Device Ordered <Henri Serrano PA-C - Last Filed: 05/22/25 13:12> VTE Drug Contraindication: Treatment Not Indicated <Henri Serrano PA-C - Last Filed: 05/22/25 13:12> Procedures Date of Service Date of Service: 05/22/25 <Henri Serrano PA-C - Last Filed: 05/22/25 13:12> 05/22/25 <Cass Farrell MD - Last Filed: 05/22/25 19:15>
[2025-05-22 09:12] VITALS: BP 129/74; PULSE 78; RESP 15; TEMP 36.1; O2SAT 97
[2025-05-22 11:11] VITALS: BP 123/74; PULSE 68; RESP 16; TEMP 35.9; O2SAT 98
--- NOTE | 2025-05-22 12:16 | MHC.CM.PN ---
PT LIVES W/S/O IS INDEPENDENT WILL NOT NEED SERVICES WHEN DCD DC PLAN HOME NO SERVICES
--- NOTE | 2025-05-22 14:53 | PM.EVENT ---
Event Note Date of Service: 05/22/25 Event Note: Refusing I&D in the OR. States he wants to leave as his girlfriend will lose her job if she misses another day of work and he has to take care of his kids. Examined again- mild induration, wound is open and draining nonpurulent drainage, no significant erythema, no palpable fluctuance. Can hold off on further I&D- we did discuss at least staying for IV abx and he is currently agreeable. Recommended sitz baths TID and following bowel movements to help with induration, promote wound drainage. Can advance diet to regular. Time Spent With Patient Time: Total time managing care of this patient today ____ minutes.
[2025-05-22 15:41] VITALS: BP 116/67; PULSE 75; RESP 16; TEMP 36.2; O2SAT 98
--- NOTE | 2025-05-22 17:16 | PM.DS ---
DS: Providers Provider Date of Service: 05/22/25 Date of admission: 05/22/25 00:32 Date of discharge: 05/22/25 Primary care physician: Jerica Jeffries MD Attending physician on admission: Cass Farrell DS: Diagnosis Discharge Diagnosis (1) Vielka-rectal abscess: Status: Acute DS: Summary Hospital Course Hospital Course: HPI AT ADMISSION: Steven Angulo is a 24 year old male with a history of asthma, perirectal abscess requiring ID on 05/07, returning with increased pain at the site for the last few days. patient reports he has done everything the ED providers told him, including abx and cleaning the wound. Denies fever, chills. He states he was unable to sit down because of the discomfort. When he was in the ED the wound began to spontaneously drain, he describes it as some blood and some pus. Pain improved after draining. He met sepsis criteria in ED and was started on IV fluid, vanco and zosyn. CT scan shows improvement in the abscess compared to the previous imaging. previous wound culture growing staph aureus. Daily meds include albuterol, Endorses marijuana use, occasional alcohol use. No known allergies. HOSPITAL COURSE: Given this is his second presentation for perirectal abscess, it was initially recommended to open up the site further in the operating room. He was admitted to the surgical service, kept NPO, on IVF and IV abx. He later then refused I&D in the OR and stated he wanted to leave as his girlfriend will lose her job if she misses another day of work and he has to take care of his kids. He was examined again and he had very mild induration, wound was open and draining nonpurulent drainage, no significant erythema, no palpable fluctuance. It was discussed holding off on I&D however it was recommended at least staying for a few more doses of IV abx and he was agreeable. He was discharged later in the evening on 05/22/25 on a course of Augmentin. Recommended sitz baths TID and following bowel movements as well as massaging the abscess area to help with induration, promote wound drainage. He is to follow up in the office in 1 week. Status at Discharge Functional status at discharge: independent ambulation Time Attestation Discharge Coordination Time (in mins): 25 Quality: Safe Use of Opioids Does Pt have an Active Cancer Diagnosis on the Problem List?: No Quality: Stroke Does the patient have a stroke diagnosis?: No Physical Exam Vital Signs: Vital Signs: Last Vital Signs Temp 97.8 F 05/22/25 17:53 Pulse 85 05/22/25 17:53 Resp 16 05/22/25 17:53 BP 137/89 05/22/25 17:53 Pulse Ox 99 05/22/25 17:53 O2 Del Method Room Air 05/22/25 17:53 BMI result Body Mass Index 28.0 Const: General: comfortable, no acute distress and alert Resp: Effort & Inspection: normal respiratory effort GI: Other: left perirectal I&D site remains open and draining nonpurulent drainage, mild induration, no erythema, mildly tender to palpation, no fluctuance DS: Data Data Completed and Pending Labs on day of discharge: Preliminary micro results at discharge 05/21/25 20:51 Blood Culture - Preliminary Blood - Venous No growth after 24 hours. 05/21/25 20:51 Blood Culture - Preliminary Blood - Venous No growth after 24 hours. Discharge Plan Discharge Anticipated Discharge Date/Time: 05/22/25 17:58 Patient Disposition: Home, Self-Care Discharge Diagnosis: perirectal abscess Referrals: Jerica Jeffries MD [Primary Care Provider, Medical] - 1 Week Discharge Medications: New amoxicillin-pot clavulanate 875-125 mg tablet 1 tab PO BID Qty: 10 0RF Continued albuterol sulfate 90 mcg/actuation HFA aerosol inhaler 1 puff inhalation Q4H PRN (Reason: Shortness Of Breath Or Wheezing) Discharge Orders: Discharge Order (Routine); Ordered 05/22/25 Ordered By: Cass Farrell Diet: Advance to usual diet Activity on Discharge: As tolerated Stand Alone Forms: Patient Portal Discharge page Print Language: Lithuanian Activity Restrictions/Additional Instructions: Hot sitz baths three times a day and after bowel movements Massage area of the abscess 4 times a day Follow up in the general surgery office in a week. ([phone]) Call Your Doctor Or Return to ED If: ? ? -Your temperature exceeds 101.5? F? ? ? -You experience excessive pain or swelling ? ? -You have an unexpected reaction to medication ? ? -You experience continued vomiting/nausea Care Plan Goals: feeling better, Health Concerns: fever chills increased pain and swelling call surgical office Plan of Treatment: sitz baths and antibiotics and compression of the area to encourage drainage Assessment: improved as seems to have drained on its own Discharge Date/Time: 05/22/25 18:08
[2025-05-22 17:53] VITALS: BP 137/89; PULSE 85; RESP 16; TEMP 36.6; O2SAT 99
== END 2025-05-22 18:08 | disposition home or self-care (01) | DRG 395 ==
LOC: HO.ED 05-22 01:02 → HO.EDOVER 05-22 01:09 → HO.S3 05-22 08:17
PROVIDERS: Physician Assistant Medical; Admitting Provider Surgery; Emergency Provider Emergency Medicine; PCP Internal Medicine; Visit Provider Surgery
DX: K61.1 Rectal abscess (principal); J45.909 Unspecified asthma, uncomplicated
CPT/HCPCS: 36415; 74177; 80053; 81003; 83605; 83735; 85025; 87040; 99285; J1885; J2270; J2405; J2543; J3374; Q9967

== ENCOUNTER → 2025-05-21 20:35 | Outpatient (BNV) | payer MEDICARE, MEDICAID, SELFPAY | PROVIDERS: Emergency Provider Emergency Medicine; PCP Internal Medicine; Visit Provider Radiology Diagnostic Radiology | DX: K61.0 Anal abscess (principal) | CPT/HCPCS: 74177 ==

== ENCOUNTER → 2025-05-22 00:32 | Outpatient (BNV) | payer MEDICARE, MEDICAID, SELFPAY | PROVIDERS: Admitting Provider Surgery; Emergency Provider Emergency Medicine; PCP Internal Medicine; Visit Provider Physician Assistant Surgical | DX: K61.1 Rectal abscess (principal) | CPT/HCPCS: 99222; 99499 ==